=== PATIENT | female | born 1990 | race Caucasian/White ===

== ENCOUNTER 2016-12-01 22:09 | Emergency (ER) | payer OTHER ==
[~2016-12-01] VITALS: Ht 165.1 cm; Wt 87.1 kg
[~2016-12-01 22:09] MED LIST: COMP1TAB PO; MELA1TAB15 PO
[2016-12-02 00:04] LABS: MICROSCOPIC INDICATED? MAN YES (NO)
[2016-12-02 00:06] LABS: MICROSCOPIC EXAM PERFORMED
[2016-12-02 00:07] LABS: BACTERIA, URINE SMALL AMOUNT; HYALINE CAST, URINE NONE SEEN /lpf (0-1); RBC, URINE TNTC /hpf (0-3); SQUAMOUS EPITHELIAL CELL URINE SMALL AMOUNT /hpf (SMALL AMT)
[2016-12-02] MEDS ORDERED: KETOROLAC 30 MG/ML VIAL (J1885) As Ordered ONE (00:34)
[2016-12-02] MEDS ORDERED: ONDANSETRON 4MG/2ML VIAL (J2405) As Ordered ONE (00:34)
[2016-12-02 00:36] LABS: BASO % 0.4 % (0.0-1.0); EOS # 0.3 K/mm3 (0.0-0.50); EOS % 2.4 % (0.0-3.0); LARGE UNSTAINED CELL # 0.2 K/mm3 (0.0-0.4); LARGE UNSTAINED CELL % 1.4 % (0.0-4.0); LYMPH # 2.2 K/mm3 (1.5-6.5); LYMPH % 19.7 % (24.0-44.0); MEAN CORPUSCULAR HEMOGLOBIN 29.4 pg (27.0-33.0); MEAN CORPUSCULAR HGB CONC 33.4 g/dl (32.0-36.5); MONO # 0.4 K/mm3 (0.0-0.8); MONO % 3.2 % (0.0-5.0); NEUTROPHILS # 8.1 K/mm3 (1.8-7.7); NEUTROPHILS % 72.9 % (36.0-66.0); PLATELET COUNT, AUTOMATED 238 k/mm3 (150-450); RED CELL DISTRIBUTION WIDTH 12.5 % (11.5-14.5); WHITE BLOOD COUNT 11.1 K/mm3 (4.0-10.0)
[2016-12-02 00:53] LABS: CONTROL LINE HCG INT CTR LINE PRESENT
[2016-12-02 01:00] LABS: ALBUMIN 3.5 GM/DL (3.2-5.2); ALBUMIN/GLOBULIN RATIO 0.97 (1.00-1.93); ALKALINE PHOSPHATASE 103 U/L (45-117); ALT/SGPT 20 U/L (12-78); AMYLASE 29 U/L (25-115); ANION GAP 10 MEQ/L (8-16); AST/SGOT 8 U/L (15-37); BILIRUBIN,DIRECT < 0.1 MG/DL (0.0-0.2); BILIRUBIN,TOTAL 0.3 MG/DL (0.2-1.0); BLOOD UREA NITROGEN 10 MG/DL (7-18); CALCIUM LEVEL 8.4 MG/DL (8.5-10.1); CARBON DIOXIDE LEVEL 26 MEQ/L (21-32); CHLORIDE LEVEL 106 MEQ/L (98-107); GLOMERULAR FILTRATION RATE > 60.0 (>60); GLUCOSE, FASTING 108 MG/DL (70-105); POTASSIUM SERUM 3.8 MEQ/L (3.5-5.1); SODIUM LEVEL 142 MEQ/L (136-145); TOTAL PROTEIN 7.1 GM/DL (6.4-8.2)
--- NOTE | 2016-12-02 01:50 | REPUSA ---
CLINICAL HISTORY: Abdominal pain. TECHNIQUE: Multiple axial, sagittal and coronal CT images were obtained through the abdomen and pelvi s without administration of oral or IV contrast material. COMMENTS: Comparison is made to the prior exam performed on 01/25/2016. The liver is of uniform attenuation without mass or defect. There is no intra or extrahepatic biliary ductal dilatation. The spleen is normal. The gallbladder is within normal limits. The pancreas is of normal contour and attenuation characteristics. There is no evidence of adrenal mass. No change in 6 mm nonobstructing calculus in the lower calyceal group of the right kidney. Right double-J ureteric catheter was inserted in good position. Fat stranding and thickening of the distal right ureter is identified. This was not present on prior exam. The kidneys are otherwise normal in size, shape and configuration. No left renal or ureteral calculi are identified. There is no left hydroureter or hydronephrosis. There is no evidence for appendicitis. There is no bowel wall thickening. No evidence for small or la rge bowel obstruction. There is no evidence of abdominal ascites or lymphadenopathy. Thickened urinary bladder. There is no evidence of intrinsic or extrinsic bladder mass. There is no pelvic ascites or lymphadeno delores. Images of the lung bases show no evidence of pleural or parenchymal mass. There are no pleural effusi ons. The bony structures are free of lytic or blastic lesions. Spinal stimulator is seen in good position. IMPRESSION: Thickened bladder. Underdistention versus mild cystitis. Interval insertion of a right double-J catheter. No change in nonobstructing right nephrolithiasis. Thickening and fat stranding surrounding the distal aspect of the right ureter. Recent intervention v ersus an ascending urinary tract infection. Please evaluate clinically and correlate with urinalysis. Thank you for your kind referral of this patient.
[2016-12-02] MEDS ORDERED: cefTRIAXone SOD 2 GM in D5W MINI-BAG PLUS 50 ML IV SCH (03:00)
--- NOTE | 2016-12-02 04:12 | EDDOCDS ---
Nurse's Notes [facility] Name: Sandy Mirza Age: 26 yrs Sex: Female : 1990 Arrival Date: 12/01/2016 Time: 22:09 Bed 5 Private MD: Alexia Stevens N. Diagnosis: Hematuria;Calculus of kidney;Urinary tract infection, site not specified Presentation: 12/01 22:15 Presenting complaint: Patient states: Had right kidney stent placed on the of rs3 October in [facility]. increased pain today right flank to right lower abdomen. been having bloody urine, today it has been dark with clots. Acute neurological deficits are not present. Mechanism of Injury: No Mechanism of Injury. Adult Sepsis Screening: The patient does not have new or worsening altered mentation. Patient's respiratory rate is less than 22. Systolic blood pressure is greater than 100. Patient has a qSOFA score of 0- Negative Sepsis Screen. Suicide/Homicide risk assessment- the patient denies having any suicidal and/or homicidal ideations and does not present with any other emotional, behavioral or mental health complaints. Status: Patient is not a guest services or dependent. Transition of care: patient was not received from another setting of care. 22:15 Acuity: DANNI Level 3 rs3 22:15 Method Of Arrival: Walkin/Carried/Asstd rs3 Triage Assessment: 22:20 General: Appears in no apparent distress. Pain: Location: low back area and right mid rs3 back. HIV screening NA for this visit Offered previously. Musculoskeletal: Reports Pain is 8 out of 10 on a pain scale. 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 Diamox Sequels 500 mg Oral cpER 1 cap once daily 2. multivitamin Oral tab 1 tab daily 3. Ventolin HFA 90 mcg/actuation Nebulizer HFAA 2 puffs every 4-6 hours 4. oxybutynin chloride 10 mg Oral tr24 1 tab once daily 5. Flomax 0.4 mg Oral cp24 1 cap once daily 6. Pyridium 100 mg Oral tab 1 tab 3 times per day 7. oxycodone 5 mg Oral tab 1 tab every 4 hours 8. 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 No barriers to communication noted, The patient speaks fluent Divehi. - Family history: Not pertinent. - : The pt / caregiver states he / she is not on anticoagulants. Home medication list is obtained from the patient. - Exposure Risk Screening:: None identified. Screenin/13 00:47 Screening information is obtained from the patient. Fall risk: No risks identified. mgs Assistance ADL's: requires no assistance with activities of daily living. Abuse/DV Screen: The patient / caregiver reports he/she is: not in a situation that causes fear, pain or injury. Nutritional screening: No deficits noted. Advance Directives: Currently, there is no health care proxy. There is no active DNR order. home support is adequate. Assessment: 00:45 General: Appears uncomfortable, Behavior is appropriate for age, cooperative. Pain: mgs Location: right mid back and low back area Pain currently is 5 out of 10 on a pain scale. Neurological: Level of Consciousness is awake, alert, Oriented to person, place, time. Cardiovascular: Capillary refill < 3 seconds Heart tones S1 S2 present Pulses are 2+ in right radial artery and left radial artery. Respiratory: Airway is patent Respiratory effort is even, unlabored, Respiratory pattern is regular, symmetrical. GI: Abdomen is obese, Bowel sounds present X 4 quads. Abd is tender to palpation in right upper quadrant and right lower quadrant. Derm: Skin is pink, warm & dry. 01:22 General: Appears uncomfortable, Behavior is appropriate for age, cooperative. mgs Neurological: Level of Consciousness is awake, alert, Oriented to person, place, time. Cardiovascular: Capillary refill < 3 seconds. Respiratory: Airway is patent Respiratory effort is even, unlabored, Respiratory pattern is regular, symmetrical. Derm: Skin is pink, warm & dry. 02:08 General: Appears in no apparent distress, Behavior is appropriate for age, cooperative. mgs Neurological: Level of Consciousness is awake, alert, Oriented to person, place, time. Cardiovascular: Capillary refill < 3 seconds. Respiratory: Airway is patent Respiratory effort is even, unlabored, Respiratory pattern is regular, symmetrical. Derm: Skin is pink, warm & dry. 02:38 General: Appears in no apparent distress, Behavior is appropriate for age, cooperative. mgs General: Patient reports pain 0/10, reports only hurts when she urinates.. Neurological: Level of Consciousness is awake, alert, Oriented to person, place, time. Cardiovascular: Capillary refill < 3 seconds Heart tones S1 S2 present. Respiratory: Airway is patent Respiratory effort is even, unlabored, Respiratory pattern is regular, symmetrical. GI: Derm: Skin is pink, warm & dry. Vital Signs: 12/01 22:11 BP 134 / 85; Pulse 131; Resp 18; Temp 97.3(O); Pulse Ox 99% on R/A; Weight 87.09 kg ct3 (R); Height 5 ft. 5 in. (165.10 cm) (R); Pain 9/10; 12/02 00:18 BP 109 / 73 (auto/); mgs 00:22 Pulse 98 MON; Pulse Ox 96% ; mgs 00:22 BP 108 / 71; Pulse 71; Resp 18; Temp 97.8(TE); Pulse Ox 99% on R/A; mgs 02:37 BP 108 / 71 (auto/); mgs 02:38 Pulse 84 MON; Pulse Ox 98% ; mgs 03:00 Pulse 92 MON; Pulse Ox 96% ; mgs 03:30 Pulse 90 MON; Pulse Ox 97% ; mgs 04:00 Pulse 90 MON; Pulse Ox 98% ; mgs 04:06 BP 106 / 76; Pulse 85; Resp 18; Temp 97.2(O); Pulse Ox 98% on R/A; Pain 0/10; mdr 02 22:11 Body Mass Index 31.95 (87.09 kg, 165.10 cm) ct3 Vitals: 12/01 22:11 Log In Time: December 01, 2016 at 22:09. ct3 ED Course: 22:10 Patient visited by Tuyet Anton PCA. ct3 22:10 Patient moved to Waiting ct3 22:11 Alexia Stevens is Private Physician. ct3 22:12 Patient moved to Pre RCE ct3 22:18 Triage Initiated rs3 23:01 Patient moved to Waiting jmb 23:03 Patient moved to Pre RCE ct3 23:05 Patient moved to Waiting jmb 23:41 Patient visited by Inessa Santiago. nb2 23:41 Urine Culture Sent. nb2 12/02 00:01 Patient moved to 5 roselyn 00:02 Gilles Velasquez RPA-C is PHCP. ck7 00:02 Rusty Barone DO is Attending Physician. ck7 00:02 Patient visited by Gilles Velasquez RPA-C. ck7 00:05 Rusty Wilkinson,ARTIE is Primary Nurse. mgs 00:28 HCG,Serum Qualitative Sent. mgs 00:28 Amylase Sent. mgs 00:28 Basic Metabolic Profile Sent. mgs 00:28 Liver Profile Sent. mgs 00:28 Lipase Sent. mgs 00:28 CBC with Diff Sent. mgs 00:30 Inserted saline lock: 20 gauge in right antecubital area. mgs 00:48 Patient visited by Rusty Wilkinson RN. mgs 01:23 Patient visited by Rusty Wilkinson RN. mgs 01:29 [facility] Payment Agreement was scanned into [employer] and attached to record. [facility] 02:05 CT ABD & PELVIS: No Contrast Returned. EDMS 02:08 Patient visited by Gilles Velasquez RPA-C. ck7 02:09 Patient visited by Rusty Wilkinson RN. mgs 03:01 Patient visited by Rusty Wilkinson,ARTIE. mgs 04:07 Patient visited by Claudio Gregg PCA. mdr 04:10 Discontinued IV lock intact, bleeding controlled, pressure dressing applied, No mgs redness/swelling at site. No procedures done that require assistance. 04:11 The patient / caregiver is instructed regarding the plan of care and ED course. mgs Administered Medications: 00:47 Drug: NS 0.9% 1000 ml [sodium chloride 0.9 % intravenous solution] Route: IV; Rate: mgs bolus; Site: right antecubital; 00:47 Drug: ketorolac 30 mg [ketorolac 30 mg/mL (1 mL) injection solution (1 mL)] Route: IVP; mgs Site: right antecubital; 00:48 Drug: Ondansetron 4 mg [ondansetron HCl 2 mg/mL intravenous solution (2 mL)] Route: mgs IVP; Site: right antecubital; 02:35 CANCELLED (Other Intervention Used): morphine 4 mg IVP once ck7 03:01 Drug: cefTRIAXone 2 grams [ceftriaxone 1 gram solution for injection] Route: IVPB; mgs Infused Over: 30 mins; Site: right antecubital; Point of Care Testing: Urine : 12/01 23:41 hCG Reading: Negative; Control Reading: Positive; nb2 Ranges: Order Results: Lab Order: URINALYSIS MANUAL; SPEC'M 12/01/16 23:35 Test: APPEARANCE, URINE MANUAL; Value: CLOUDY; Range: CLEAR; Abnormal: Above high normal; Status: F Test: COLOR, URINE MANUAL; Value: RED; Range: YELLOW; Abnormal: Above high normal; Status: F Test: PH,URINE MAN; Value: 7.5; Range: 5.0 - 9.0; Units: UNITS; Status: F Test: SPECIFIC GRAVITY,URINE MANUAL; Value: 1.010; Range: 1.002-1.035; Status: F Test: PROTEIN, URINE MANUAL; Value: 2+; Range: NEGATIVE; Abnormal: Above high normal; Units: mg/dL; Status: F Test: GLUCOSE, URINE (UA) MANUAL; Value: NEGATIVE; Range: NEGATIVE; Units: mg/dL; Status: F Test: KETONE, URINE MANUAL; Value: NEGATIVE; Range: NEGATIVE; Units: mg/dL; Status: F Test: UROBILINOGEN, URINE MANUAL; Value: NORMAL; Range: NORMAL; Units: mg/dl; Status: F Test: BILIRUBIN, URINE MANUAL; Value: NEGATIVE; Range: NEGATIVE; Status: F Test: NITRITE, URINE MANUAL; Value: NEGATIVE; Range: NEGATIVE; Status: F Test: LEUKOCYTE ESTERASE, URINE MAN; Value: POSITIVE; Range: NEGATIVE; Abnormal: Above high normal; Status: F Test: BLOOD URINE MANUAL; Value: POSITIVE; Range: NEGATIVE; Abnormal: Above high normal; Status: F Lab Order: MICROSCOPIC, URINE; SPEC'M 12/01/16 23:35 Test: WBC, URINE; Value: 5-7; Range: 0-3; Abnormal: Above high normal; Units: /hpf; Status: F Test: RBC, URINE; Value: TNTC; Range: 0-3; Abnormal: Above high normal; Units: /hpf; Status: F Test: SQUAMOUS EPITHELIAL CELL URINE; Value: SMALL AMOUNT; Range: SMALL AMT; Units: /hpf; Status: F Test: BACTERIA, URINE; Value: SMALL AMOUNT; Range: NONE; Abnormal: Above high normal; Status: F Test: HYALINE CAST, URINE; Value: NONE SEEN; Range: 0-1; Units: /lpf; Status: F Test: MICROSCOPIC EXAM; Value: PERFORMED; Status: F Lab Order: Amylase; SPEC'12/02/16 00:27 Test: AMYLASE; Value: 29; Range: 25-115; Units: U/L; Status: F Lab Order: Basic Metabolic Profile; SPEC'12/02/16 00:27 Test: GLUCOSE, FASTING; Value: 108; Range: 70-105; Abnormal: Above high normal; Units: MG/DL; Status: F Test: BLOOD UREA NITROGEN; Value: 10; Range: 7-18; Units: MG/DL; Status: F Test: CREATININE FOR GFR; Value: 0.80; Range: 0.55-1.02; Units: MG/DL; Status: F Test: SODIUM LEVEL; Range: 136-145; Units: MEQ/L; Status: I Test: POTASSIUM SERUM; Range: 3.5-5.1; Units: MEQ/L; Status: I Test: CHLORIDE LEVEL; Range: 98-107; Units: MEQ/L; Status: I Test: CARBON DIOXIDE LEVEL; Range: 21-32; Units: MEQ/L; Status: I Test: ANION GAP; Range: 8-16; Units: MEQ/L; Status: I Test: CALCIUM LEVEL; Range: 8.5-10.1; Units: MG/DL; Status: I Test: GLOMERULAR FILTRATION RATE; Value: > 60.0; Range: >60; Status: F Test: SODIUM LEVEL; Value: 142; Range: 136-145; Units: MEQ/L; Status: F Test: POTASSIUM SERUM; Value: 3.8; Range: 3.5-5.1; Units: MEQ/L; Status: F Test: CHLORIDE LEVEL; Value: 106; Range: 98-107; Units: MEQ/L; Status: F Test: CARBON DIOXIDE LEVEL; Value: 26; Range: 21-32; Units: MEQ/L; Status: F Test: ANION GAP; Value: 10; Range: 8-16; Units: MEQ/L; Status: F Test: CALCIUM LEVEL; Value: 8.4; Range: 8.5-10.1; Abnormal: Below low normal; Units: MG/DL; Status: F Test Note: ; Units are mL/min/1.73 m2 Chronic Kidney Disease Staging per NKF: Stage I & II GFR >=60 Normal to Mildly Decreased Stage III GFR 30-59 Moderately Decreased Stage IV GFR 15-29 Severely Decreased Stage V GFR <15 Very Little GFR Left ESRD GFR <15 on [employer]PERVISOR Lab Order: CBC with Diff; SPEC'M 12/02/16 00:27 Test: WHITE BLOOD COUNT; Value: 11.1; Range: 4.0-10.0; Abnormal: Above high normal; Units: K/mm3; Status: F Test: RED BLOOD COUNT; Value: 4.32; Range: 4.00-5.40; Units: M/mm3; Status: F Test: HEMOGLOBIN; Value: 12.7; Range: 12.0-16.0; Units: g/dl; Status: F Test: HEMATOCRIT; Value: 38.0; Range: 36.0-47.0; Units: %; Status: F Test: MEAN CORPUSCULAR VOLUME; Value: 88.0; Range: 80.0-96.0; Units: fl; Status: F Test: MEAN CORPUSCULAR HEMOGLOBIN; Value: 29.4; Range: 27.0-33.0; Units: pg; Status: F Test: MEAN CORPUSCULAR HGB CONC; Value: 33.4; Range: 32.0-36.5; Units: g/dl; Status: F Test: RED CELL DISTRIBUTION WIDTH; Value: 12.5; Range: 11.5-14.5; Units: %; Status: F Test: PLATELET COUNT, AUTOMATED; Value: 238; Range: 150-450; Units: k/mm3; Status: F Test: NEUTROPHILS %; Value: 72.9; Range: 36.0-66.0; Abnormal: Above high normal; Units: %; Status: F Test: LYMPH %; Value: 19.7; Range: 24.0-44.0; Abnormal: Below low normal; Units: %; Status: F Test: MONO %; Value: 3.2; Range: 0.0-5.0; Units: %; Status: F Test: EOS %; Value: 2.4; Range: 0.0-3.0; Units: %; Status: F Test: BASO %; Value: 0.4; Range: 0.0-1.0; Units: %; Status: F Test: LARGE UNSTAINED CELL %; Value: 1.4; Range: 0.0-4.0; Units: %; Status: F Test: NEUTROPHILS #; Value: 8.1; Range: 1.8-7.7; Abnormal: Above high normal; Units: K/mm3; Status: F Test: LYMPH #; Value: 2.2; Range: 1.5-6.5; Units: K/mm3; Status: F Test: MONO #; Value: 0.4; Range: 0.0-0.8; Units: K/mm3; Status: F Test: EOS #; Value: 0.3; Range: 0.0-0.50; Units: K/mm3; Status: F Test: BASO #; Value: 0.0; Range: 0.0-0.2; Units: K/mm3; Status: F Test: LARGE UNSTAINED CELL #; Value: 0.2; Range: 0.0-0.4; Units: K/mm3; Status: F Lab Order: Lipase; SPEC'M 12/02/16 00:27 Test: LIPASE; Value: 146; Range: 73-393; Units: U/L; Status: F Lab Order: Liver Profile; SPEC'M 12/02/16 00:27 Test: AST/SGOT; Value: 8; Range: 15-37; Abnormal: Below low normal; Units: U/L; Status: F Test: ALT/SGPT; Value: 20; Range: 12-78; Units: U/L; Status: F Test: ALKALINE PHOSPHATASE; Value: 103; Range: 45-117; Units: U/L; Status: F Test: BILIRUBIN,TOTAL; Value: 0.3; Range: 0.2-1.0; Units: MG/DL; Status: F Test: BILIRUBIN,DIRECT; Value: < 0.1; Range: 0.0-0.2; Units: MG/DL; Status: F Test: TOTAL PROTEIN; Value: 7.1; Range: 6.4-8.2; Units: GM/DL; Status: F Test: ALBUMIN; Value: 3.5; Range: 3.2-5.2; Units: GM/DL; Status: F Test: ALBUMIN/GLOBULIN RATIO; Value: 0.97; Range: 1.00-1.93; Abnormal: Below low normal; Status: F Lab Order: HCG,Serum Qualitative; SPEC'M 12/02/16 00:27 Test: HCG, SERUM QUALITATIVE; Value: NEGATIVE; Range: NEGATIVE; Status: F Radiology Order: CT ABD & PELVIS: No Contrast Test: CT ABD & PELVIS: No Contrast REASON FOR EXAMINATION: Renal colic; ; CLINICAL HISTORY: Abdominal pain.; TECHNIQUE: Multiple axial, sagittal and coronal CT images were obtained through the abdomen and pelvi; s without administration of oral or IV contrast material.; COMMENTS:; Comparison is made to the prior exam performed on 01/25/2016.; The liver is of uniform attenuation without mass or defect. There is no intra or extrahepatic biliary; ductal dilatation. The spleen is normal. The gallbladder is within normal limits. The pancreas is of; normal contour and attenuation characteristics. There is no evidence of adrenal mass.; No change in 6 mm nonobstructing calculus in the lower calyceal group of the right kidney.; Right double-J ureteric catheter was inserted in good position.; Fat stranding and thickening of the distal right ureter is identified. This was not present on prior; exam.; The kidneys are otherwise normal in size, shape and configuration. No left renal or ureteral calculi; are identified. There is no left hydroureter or hydronephrosis.; There is no evidence for appendicitis. There is no bowel wall thickening. No evidence for small or la; rge bowel obstruction. There is no evidence of abdominal ascites or lymphadenopathy.; Thickened urinary bladder.; There is no evidence of intrinsic or extrinsic bladder mass. There is no pelvic ascites or lymphadeno; delores.; Images of the lung bases show no evidence of pleural or parenchymal mass. There are no pleural effusi; ons.; The bony structures are free of lytic or blastic lesions.; Spinal stimulator is seen in good position.; IMPRESSION:; Thickened bladder. Underdistention versus mild cystitis.; Interval insertion of a right double-J catheter.; No change in nonobstructing right nephrolithiasis.; Thickening and fat stranding surrounding the distal aspect of the right ureter. Recent intervention v; ersus an ascending urinary tract infection. Please evaluate clinically and correlate with urinalysis.; ; Thank you for your kind referral of this patient.; ; Outcome: 12/02 02:37 Discharge ordered by Provider. ck7 04:10 Discharge Assessment: Patient awake, alert and oriented x 3. No cognitive and/or mgs functional deficits noted. Patient verbalized understanding of disposition instructions. patient administered narcotics - no. The following High Risk Discharge criteria are identified: None. Discharged to home ambulatory, with family. Condition: stable. Discharge instructions given to patient, Instructed on discharge instructions, follow up and referral plans. Demonstrated understanding of instructions, Pt was receptive of discharge instructions/ teaching. Work note provided to patient. CT Study completed. Property :Personal belongings accompany Pt. 04:11 Patient left the ED. mgs Signatures: Dispatcher [employer] EDMS Janie Jiménez,RN RN rs3 Jeanette Schmitt, HAND MARKER HAND MARKER roselyn AntonTuyet, HAND MARKER HAND MARKER ct3 Gilles Velasquez, RPA-C RPA-Cck7 Amos BensonRN RN Cait Stanford Matthew,RN RN mgs Claudio Gregg, HAND MARKER HAND MARKER mdr Inessa Santiago nb2 Corrections: (The following items were deleted from the chart) 12/01 23:46 23:41 URINALYSIS+LAB sent. nb2 EDNH MTDD
--- NOTE | 2016-12-02 04:12 | EDDOCDS ---
Physician Documentation [facility] Name: Sandy Mirza Age: 26 yrs Sex: Female : 1990 Arrival Date: 12/01/2016 Time: 22:09 Bed 5 Private MD: Alexia Stevens N. Disposition: 12/02/16 02:37 Discharged to Home/Self Care. Impression: Hematuria, Calculus of kidney, Urinary tract infection, site not specified. - Condition is Stable. - Discharge Instructions: Hematuria, Adult, Kidney Stones, Urinary Tract Infection. - Medication Reconciliation, Work Release Form - 2 day, Local Pharmacy Hours form. - Follow up: Private Physician; When: Tomorrow; Reason: Recheck today's complaints, Continuance of care. Follow up: Emergency Department; When: As needed; Reason: Recheck today's complaints, Worsening of conditions, Continuance of care. - Problem is new. - Symptoms have improved. - Notes: CALL [facility] TOMORROW MORNING TO FOLLOW UP TOMORROW, IF BY CHANCE THE SYMPTOMS WORSEN OR THEY ARE UNABLE TO GET YOU IN RETURN TO THE ER Historical: - Allergies: Adhesives (Rash); Ciprofloxacin (Vomit); Dilaudid (Hives, Vomit); Doxycycline (Hives, Vomit); latex sensitive; SULFA (SULFONAMIDES) (Vomit); - Home Meds: 1. Diamox Sequels 500 mg Oral cpER 1 cap once daily 2. multivitamin Oral tab 1 tab daily 3. Ventolin HFA 90 mcg/actuation Nebulizer HFAA 2 puffs every 4-6 hours 4. oxybutynin chloride 10 mg Oral tr24 1 tab once daily 5. Flomax 0.4 mg Oral cp24 1 cap once daily 6. Pyridium 100 mg Oral tab 1 tab 3 times per day 7. oxycodone 5 mg Oral tab 1 tab every 4 hours 8. 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 No barriers to communication noted, The patient speaks fluent Luxembourgish. - Family history: Not pertinent. - : The pt / caregiver states he / she is not on anticoagulants. Home medication list is obtained from the patient. - Exposure Risk Screening:: None identified. 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 5 in. (165.10 cm) (R); Pain 9/10; 12/02 00:18 BP 109 / 73 (auto/); mgs 00:22 Pulse 98 MON; Pulse Ox 96% ; mgs 00:22 BP 108 / 71; Pulse 71; Resp 18; Temp 97.8(TE); Pulse Ox 99% on R/A; mgs 02:37 BP 108 / 71 (auto/); mgs 02:38 Pulse 84 MON; Pulse Ox 98% ; mgs 03:00 Pulse 92 MON; Pulse Ox 96% ; mgs 03:30 Pulse 90 MON; Pulse Ox 97% ; mgs 04:00 Pulse 90 MON; Pulse Ox 98% ; mgs 04:06 BP 106 / 76; Pulse 85; Resp 18; Temp 97.2(O); Pulse Ox 98% on R/A; Pain 0/10; mdr 12/01 22:11 Body Mass Index 31.95 (87.09 kg, 165.10 cm) ct3 MDM: 12/01 23:33 UCG by Nursing ordered. jmb 23:34 Urine Culture Ordered. EDMS 23:46 URINALYSIS MANUAL Ordered. EDMS 12/02 00:05 URINALYSIS MANUAL Reviewed. ck7 00:13 Undress patient appropriately for examination ordered. ck7 00:13 IV Saline Lock ordered. ck7 00:13 Ondansetron 4 mg IVP once ordered. ck7 00:13 NS 0.9% 1000 ml IV at bolus once ordered. ck7 00:14 Amylase Ordered. EDMS 00:14 Basic Metabolic Profile Ordered. EDMS 00:14 CBC with Diff Ordered. EDMS 00:14 Lipase Ordered. EDMS 00:14 Liver Profile Ordered. EDMS 00:14 HCG,Serum Qualitative Ordered. EDMS 00:15 NOTHING BY MOUTH+DIET ordered. EDMS 00:16 ketorolac 30 mg IVP once ordered. ck7 00:18 CT ABD & PELVIS: No Contrast Ordered. EDMS 01:05 URINALYSIS MANUAL Reviewed. ck7 01:05 MICROSCOPIC, URINE Reviewed. ck7 01:05 Basic Metabolic Profile Reviewed. ck7 01: CBC with Diff Reviewed. ck7 01:05 Liver Profile Reviewed. ck7 01:05 Amylase Reviewed. ck7 01:05 Lipase Reviewed. ck7 01:05 HCG,Serum Qualitative Reviewed. ck7 01:05 Financial registration complete. [facility] 01:29 [facility] Payment Agreement was scanned into [employer] and attached to record. [facility] 02:35 cefTRIAXone 2 grams IVPB once over 30 mins; dilute in 50mL of NS or D5W ordered. ck7 02:35 Recheck Vital Signs, perform reassessment and enter into [employer] ordered. ck7 Point of Care Testing: Urine : 12/01 23:41 hCG Reading: Negative; Control Reading: Positive; nb2 Ranges: Administered Medications: 12/02 00:47 Drug: NS 0.9% 1000 ml [sodium chloride 0.9 % intravenous solution] Route: IV; Rate: mgs bolus; Site: right antecubital; 00:47 Drug: ketorolac 30 mg [ketorolac 30 mg/mL (1 mL) injection solution (1 mL)] Route: IVP; mgs Site: right antecubital; 00:48 Drug: Ondansetron 4 mg [ondansetron HCl 2 mg/mL intravenous solution (2 mL)] Route: mgs IVP; Site: right antecubital; 02:35 CANCELLED (Other Intervention Used): morphine 4 mg IVP once ck7 03:01 Drug: cefTRIAXone 2 grams [ceftriaxone 1 gram solution for injection] Route: IVPB; mgs Infused Over: 30 mins; Site: right antecubital; Signatures: Dispatcher [employer] EDPA Janie Jiménez RN RN rs3 Gilles Velasquez, CARLOS-C RPA-Cck7 Amos Benson RN RN jmb Hook, Sandra [facility] Rusty Wilkinson RN RN mgs The chart was reviewed and I authenticate all verbal orders and agree with the evaluation and treatment provided.Corrections: (The following items were deleted from the chart) 12/01 23:46 23:34 URINALYSIS+LAB ordered. EDPA EDPA 12/02 02:35 00:16 morphine 4 mg IVP once ordered. ck7 ck7 Attachments: 01:29 [facility] Payment Agreement [facility]
--- NOTE | 2016-12-04 05:12 | EDDOCDS ---
Nurse's Notes [facility] Name: Sandy Mirza Age: 26 yrs Sex: Female : 1990 Arrival Date: 12/01/2016 Time: 22:09 Bed 5 Private MD: Alxeia Stevens N. Diagnosis: Hematuria;Calculus of kidney;Urinary tract infection, site not specified Presentation: 12/01 22:15 Presenting complaint: Patient states: Had right kidney stent placed on the of rs3 October in [facility]. increased pain today right flank to right lower abdomen. been having bloody urine, today it has been dark with clots. Acute neurological deficits are not present. Mechanism of Injury: No Mechanism of Injury. Adult Sepsis Screening: The patient does not have new or worsening altered mentation. Patient's respiratory rate is less than 22. Systolic blood pressure is greater than 100. Patient has a qSOFA score of 0- Negative Sepsis Screen. Suicide/Homicide risk assessment- the patient denies having any suicidal and/or homicidal ideations and does not present with any other emotional, behavioral or mental health complaints. Status: Patient is not a atm servicer or dependent. Transition of care: patient was not received from another setting of care. 22:15 Acuity: DANNI Level 3 rs3 22:15 Method Of Arrival: Walkin/Carried/Asstd rs3 Triage Assessment: 22:20 General: Appears in no apparent distress. Pain: Location: low back area and right mid rs3 back. HIV screening NA for this visit Offered previously. Musculoskeletal: Reports Pain is 8 out of 10 on a pain scale. 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 Diamox Sequels 500 mg Oral cpER 1 cap once daily 2. multivitamin Oral tab 1 tab daily 3. Ventolin HFA 90 mcg/actuation Nebulizer HFAA 2 puffs every 4-6 hours 4. oxybutynin chloride 10 mg Oral tr24 1 tab once daily 5. Flomax 0.4 mg Oral cp24 1 cap once daily 6. Pyridium 100 mg Oral tab 1 tab 3 times per day 7. oxycodone 5 mg Oral tab 1 tab every 4 hours 8. 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 No barriers to communication noted, The patient speaks fluent Estonian. - Family history: Not pertinent. - : The pt / caregiver states he / she is not on anticoagulants. Home medication list is obtained from the patient. - Exposure Risk Screening:: None identified. Screenin/13 00:47 Screening information is obtained from the patient. Fall risk: No risks identified. mgs Assistance ADL's: requires no assistance with activities of daily living. Abuse/DV Screen: The patient / caregiver reports he/she is: not in a situation that causes fear, pain or injury. Nutritional screening: No deficits noted. Advance Directives: Currently, there is no health care proxy. There is no active DNR order. home support is adequate. Assessment: 00:45 General: Appears uncomfortable, Behavior is appropriate for age, cooperative. Pain: mgs Location: right mid back and low back area Pain currently is 5 out of 10 on a pain scale. Neurological: Level of Consciousness is awake, alert, Oriented to person, place, time. Cardiovascular: Capillary refill < 3 seconds Heart tones S1 S2 present Pulses are 2+ in right radial artery and left radial artery. Respiratory: Airway is patent Respiratory effort is even, unlabored, Respiratory pattern is regular, symmetrical. GI: Abdomen is obese, Bowel sounds present X 4 quads. Abd is tender to palpation in right upper quadrant and right lower quadrant. Derm: Skin is pink, warm & dry. 01:22 General: Appears uncomfortable, Behavior is appropriate for age, cooperative. mgs Neurological: Level of Consciousness is awake, alert, Oriented to person, place, time. Cardiovascular: Capillary refill < 3 seconds. Respiratory: Airway is patent Respiratory effort is even, unlabored, Respiratory pattern is regular, symmetrical. Derm: Skin is pink, warm & dry. 02:08 General: Appears in no apparent distress, Behavior is appropriate for age, cooperative. mgs Neurological: Level of Consciousness is awake, alert, Oriented to person, place, time. Cardiovascular: Capillary refill < 3 seconds. Respiratory: Airway is patent Respiratory effort is even, unlabored, Respiratory pattern is regular, symmetrical. Derm: Skin is pink, warm & dry. 02:38 General: Appears in no apparent distress, Behavior is appropriate for age, cooperative. mgs General: Patient reports pain 0/10, reports only hurts when she urinates.. Neurological: Level of Consciousness is awake, alert, Oriented to person, place, time. Cardiovascular: Capillary refill < 3 seconds Heart tones S1 S2 present. Respiratory: Airway is patent Respiratory effort is even, unlabored, Respiratory pattern is regular, symmetrical. GI: Derm: Skin is pink, warm & dry. Vital Signs: 12/01 22:11 BP 134 / 85; Pulse 131; Resp 18; Temp 97.3(O); Pulse Ox 99% on R/A; Weight 87.09 kg ct3 (R); Height 5 ft. 5 in. (165.10 cm) (R); Pain 9/10; 12/02 00:18 BP 109 / 73 (auto/); mgs 00:22 Pulse 98 MON; Pulse Ox 96% ; mgs 00:22 BP 108 / 71; Pulse 71; Resp 18; Temp 97.8(TE); Pulse Ox 99% on R/A; mgs 02:37 BP 108 / 71 (auto/); mgs 02:38 Pulse 84 MON; Pulse Ox 98% ; mgs 03:00 Pulse 92 MON; Pulse Ox 96% ; mgs 03:30 Pulse 90 MON; Pulse Ox 97% ; mgs 04:00 Pulse 90 MON; Pulse Ox 98% ; mgs 04:06 BP 106 / 76; Pulse 85; Resp 18; Temp 97.2(O); Pulse Ox 98% on R/A; Pain 0/10; mdr 02 22:11 Body Mass Index 31.95 (87.09 kg, 165.10 cm) ct3 Vitals: 12/01 22:11 Log In Time: December 01, 2016 at 22:09. ct3 ED Course: 22:10 Patient visited by Tuyet Anton PCA. ct3 22:10 Patient moved to Waiting ct3 22:11 Alexia Stevens is Private Physician. ct3 22:12 Patient moved to Pre RCE ct3 22:18 Triage Initiated rs3 23:01 Patient moved to Waiting jmb 23:03 Patient moved to Pre RCE ct3 23:05 Patient moved to Waiting jmb 23:41 Patient visited by Inessa Santiago. nb2 23:41 Urine Culture Sent. nb2 12/02 00:01 Patient moved to 5 roselyn 00:02 Gilles Velasquez RPA-C is PHCP. ck7 00:02 Rusty Barone DO is Attending Physician. ck7 00:02 Patient visited by Gilles Velasquez RPA-C. ck7 00:05 Rusty Wilkinson,ARTIE is Primary Nurse. mgs 00:28 HCG,Serum Qualitative Sent. mgs 00:28 Amylase Sent. mgs 00:28 Basic Metabolic Profile Sent. mgs 00:28 Liver Profile Sent. mgs 00:28 Lipase Sent. mgs 00:28 CBC with Diff Sent. mgs 00:30 Inserted saline lock: 20 gauge in right antecubital area. mgs 00:48 Patient visited by Rusty Wilkinson RN. mgs 01:23 Patient visited by Rusty Wilkinson RN. mgs 01:29 [facility] Payment Agreement was scanned into [employer] and attached to record. [facility] 02:05 CT ABD & PELVIS: No Contrast Returned. EDMS 02:08 Patient visited by Gilles Velasquez RPA-C. ck7 02:09 Patient visited by Rusty Wilkinson,ARTIE. mgs 03:01 Patient visited by Rusty Wilkinson,ARTIE. mgs 04:07 Patient visited by Claudio Gregg PCA. mdr 04:10 Discontinued IV lock intact, bleeding controlled, pressure dressing applied, No mgs redness/swelling at site. No procedures done that require assistance. 04:11 The patient / caregiver is instructed regarding the plan of care and ED course. mgs 12:08 T-Sheet-- Draft Copy was scanned into [employer] and attached to record. gb Administered Medications: 00:47 Drug: NS 0.9% 1000 ml [sodium chloride 0.9 % intravenous solution] Route: IV; Rate: mgs bolus; Site: right antecubital; 00:47 Drug: ketorolac 30 mg [ketorolac 30 mg/mL (1 mL) injection solution (1 mL)] Route: IVP; mgs Site: right antecubital; 00:48 Drug: Ondansetron 4 mg [ondansetron HCl 2 mg/mL intravenous solution (2 mL)] Route: mgs IVP; Site: right antecubital; 02:35 CANCELLED (Other Intervention Used): morphine 4 mg IVP once ck7 03:01 Drug: cefTRIAXone 2 grams [ceftriaxone 1 gram solution for injection] Route: IVPB; mgs Infused Over: 30 mins; Site: right antecubital; Point of Care Testing: Urine : 12/01 23:41 hCG Reading: Negative; Control Reading: Positive; nb2 Ranges: Order Results: Lab Order: Urine Culture; SPEC'M 12/01/16 23:35 Test: URINE CULTURE; Value: <EXTERNAL COMMENT eCWMed> FULL REPORT IN LAB NOTES (eCW and Medent).; Status: F Test: URINE CULTURE; Value: URINE CULTURE RESULT NO GROWTH; Status: F Lab Order: URINALYSIS MANUAL; SPEC'M 12/01/16 23:35 Test: APPEARANCE, URINE MANUAL; Value: CLOUDY; Range: CLEAR; Abnormal: Above high normal; Status: F Test: COLOR, URINE MANUAL; Value: RED; Range: YELLOW; Abnormal: Above high normal; Status: F Test: PH,URINE MAN; Value: 7.5; Range: 5.0 - 9.0; Units: UNITS; Status: F Test: SPECIFIC GRAVITY,URINE MANUAL; Value: 1.010; Range: 1.002-1.035; Status: F Test: PROTEIN, URINE MANUAL; Value: 2+; Range: NEGATIVE; Abnormal: Above high normal; Units: mg/dL; Status: F Test: GLUCOSE, URINE (UA) MANUAL; Value: NEGATIVE; Range: NEGATIVE; Units: mg/dL; Status: F Test: KETONE, URINE MANUAL; Value: NEGATIVE; Range: NEGATIVE; Units: mg/dL; Status: F Test: UROBILINOGEN, URINE MANUAL; Value: NORMAL; Range: NORMAL; Units: mg/dl; Status: F Test: BILIRUBIN, URINE MANUAL; Value: NEGATIVE; Range: NEGATIVE; Status: F Test: NITRITE, URINE MANUAL; Value: NEGATIVE; Range: NEGATIVE; Status: F Test: LEUKOCYTE ESTERASE, URINE MAN; Value: POSITIVE; Range: NEGATIVE; Abnormal: Above high normal; Status: F Test: BLOOD URINE MANUAL; Value: POSITIVE; Range: NEGATIVE; Abnormal: Above high normal; Status: F Lab Order: MICROSCOPIC, URINE; [facility] 12/01/16 23:35 Test: WBC, URINE; Value: 5-7; Range: 0-3; Abnormal: Above high normal; Units: /hpf; Status: F Test: RBC, URINE; Value: TNTC; Range: 0-3; Abnormal: Above high normal; Units: /hpf; Status: F Test: SQUAMOUS EPITHELIAL CELL URINE; Value: SMALL AMOUNT; Range: SMALL AMT; Units: /hpf; Status: F Test: BACTERIA, URINE; Value: SMALL AMOUNT; Range: NONE; Abnormal: Above high normal; Status: F Test: HYALINE CAST, URINE; Value: NONE SEEN; Range: 0-1; Units: /lpf; Status: F Test: MICROSCOPIC EXAM; Value: PERFORMED; Status: F Lab Order: Amylase; [facility] 12/02/16 00:27 Test: AMYLASE; Value: 29; Range: 25-115; Units: U/L; Status: F Lab Order: Basic Metabolic Profile; [facility] 12/02/16 00:27 Test: GLUCOSE, FASTING; Value: 108; Range: 70-105; Abnormal: Above high normal; Units: MG/DL; Status: F Test: BLOOD UREA NITROGEN; Value: 10; Range: 7-18; Units: MG/DL; Status: F Test: CREATININE FOR GFR; Value: 0.80; Range: 0.55-1.02; Units: MG/DL; Status: F Test: SODIUM LEVEL; Range: 136-145; Units: MEQ/L; Status: I Test: POTASSIUM SERUM; Range: 3.5-5.1; Units: MEQ/L; Status: I Test: CHLORIDE LEVEL; Range: 98-107; Units: MEQ/L; Status: I Test: CARBON DIOXIDE LEVEL; Range: 21-32; Units: MEQ/L; Status: I Test: ANION GAP; Range: 8-16; Units: MEQ/L; Status: I Test: CALCIUM LEVEL; Range: 8.5-10.1; Units: MG/DL; Status: I Test: GLOMERULAR FILTRATION RATE; Value: > 60.0; Range: >60; Status: F Test: SODIUM LEVEL; Value: 142; Range: 136-145; Units: MEQ/L; Status: F Test: POTASSIUM SERUM; Value: 3.8; Range: 3.5-5.1; Units: MEQ/L; Status: F Test: CHLORIDE LEVEL; Value: 106; Range: 98-107; Units: MEQ/L; Status: F Test: CARBON DIOXIDE LEVEL; Value: 26; Range: 21-32; Units: MEQ/L; Status: F Test: ANION GAP; Value: 10; Range: 8-16; Units: MEQ/L; Status: F Test: CALCIUM LEVEL; Value: 8.4; Range: 8.5-10.1; Abnormal: Below low normal; Units: MG/DL; Status: F Test Note: ; Units are mL/min/1.73 m2 Chronic Kidney Disease Staging per NKF: Stage I & II GFR >=60 Normal to Mildly Decreased Stage III GFR 30-59 Moderately Decreased Stage IV GFR 15-29 Severely Decreased Stage V GFR <15 Very Little GFR Left ESRD GFR <15 on QUANTITATIVE RESEARCHER Lab Order: CBC with Diff; SPEC'M 12/02/16 00:27 Test: WHITE BLOOD COUNT; Value: 11.1; Range: 4.0-10.0; Abnormal: Above high normal; Units: K/mm3; Status: F Test: RED BLOOD COUNT; Value: 4.32; Range: 4.00-5.40; Units: M/mm3; Status: F Test: HEMOGLOBIN; Value: 12.7; Range: 12.0-16.0; Units: g/dl; Status: F Test: HEMATOCRIT; Value: 38.0; Range: 36.0-47.0; Units: %; Status: F Test: MEAN CORPUSCULAR VOLUME; Value: 88.0; Range: 80.0-96.0; Units: fl; Status: F Test: MEAN CORPUSCULAR HEMOGLOBIN; Value: 29.4; Range: 27.0-33.0; Units: pg; Status: F Test: MEAN CORPUSCULAR HGB CONC; Value: 33.4; Range: 32.0-36.5; Units: g/dl; Status: F Test: RED CELL DISTRIBUTION WIDTH; Value: 12.5; Range: 11.5-14.5; Units: %; Status: F Test: PLATELET COUNT, AUTOMATED; Value: 238; Range: 150-450; Units: k/mm3; Status: F Test: NEUTROPHILS %; Value: 72.9; Range: 36.0-66.0; Abnormal: Above high normal; Units: %; Status: F Test: LYMPH %; Value: 19.7; Range: 24.0-44.0; Abnormal: Below low normal; Units: %; Status: F Test: MONO %; Value: 3.2; Range: 0.0-5.0; Units: %; Status: F Test: EOS %; Value: 2.4; Range: 0.0-3.0; Units: %; Status: F Test: BASO %; Value: 0.4; Range: 0.0-1.0; Units: %; Status: F Test: LARGE UNSTAINED CELL %; Value: 1.4; Range: 0.0-4.0; Units: %; Status: F Test: NEUTROPHILS #; Value: 8.1; Range: 1.8-7.7; Abnormal: Above high normal; Units: K/mm3; Status: F Test: LYMPH #; Value: 2.2; Range: 1.5-6.5; Units: K/mm3; Status: F Test: MONO #; Value: 0.4; Range: 0.0-0.8; Units: K/mm3; Status: F Test: EOS #; Value: 0.3; Range: 0.0-0.50; Units: K/mm3; Status: F Test: BASO #; Value: 0.0; Range: 0.0-0.2; Units: K/mm3; Status: F Test: LARGE UNSTAINED CELL #; Value: 0.2; Range: 0.0-0.4; Units: K/mm3; Status: F Lab Order: Lipase; SPEC'M 12/02/16 00:27 Test: LIPASE; Value: 146; Range: 73-393; Units: U/L; Status: F Lab Order: Liver Profile; SPEC'M 12/02/16 00:27 Test: AST/SGOT; Value: 8; Range: 15-37; Abnormal: Below low normal; Units: U/L; Status: F Test: ALT/SGPT; Value: 20; Range: 12-78; Units: U/L; Status: F Test: ALKALINE PHOSPHATASE; Value: 103; Range: 45-117; Units: U/L; Status: F Test: BILIRUBIN,TOTAL; Value: 0.3; Range: 0.2-1.0; Units: MG/DL; Status: F Test: BILIRUBIN,DIRECT; Value: < 0.1; Range: 0.0-0.2; Units: MG/DL; Status: F Test: TOTAL PROTEIN; Value: 7.1; Range: 6.4-8.2; Units: GM/DL; Status: F Test: ALBUMIN; Value: 3.5; Range: 3.2-5.2; Units: GM/DL; Status: F Test: ALBUMIN/GLOBULIN RATIO; Value: 0.97; Range: 1.00-1.93; Abnormal: Below low normal; Status: F Lab Order: HCG,Serum Qualitative; SPEC'M 12/02/16 00:27 Test: HCG, SERUM QUALITATIVE; Value: NEGATIVE; Range: NEGATIVE; Status: F Radiology Order: CT ABD & PELVIS: No Contrast Test: CT ABD & PELVIS: No Contrast REASON FOR EXAMINATION: Renal colic; ; CLINICAL HISTORY: Abdominal pain.; TECHNIQUE: Multiple axial, sagittal and coronal CT images were obtained through the abdomen and pelvi; s without administration of oral or IV contrast material.; COMMENTS:; Comparison is made to the prior exam performed on 01/25/2016.; The liver is of uniform attenuation without mass or defect. There is no intra or extrahepatic biliary; ductal dilatation. The spleen is normal. The gallbladder is within normal limits. The pancreas is of; normal contour and attenuation characteristics. There is no evidence of adrenal mass.; No change in 6 mm nonobstructing calculus in the lower calyceal group of the right kidney.; Right double-J ureteric catheter was inserted in good position.; Fat stranding and thickening of the distal right ureter is identified. This was not present on prior; exam.; The kidneys are otherwise normal in size, shape and configuration. No left renal or ureteral calculi; are identified. There is no left hydroureter or hydronephrosis.; There is no evidence for appendicitis. There is no bowel wall thickening. No evidence for small or la; rge bowel obstruction. There is no evidence of abdominal ascites or lymphadenopathy.; Thickened urinary bladder.; There is no evidence of intrinsic or extrinsic bladder mass. There is no pelvic ascites or lymphadeno; delores.; Images of the lung bases show no evidence of pleural or parenchymal mass. There are no pleural effusi; ons.; The bony structures are free of lytic or blastic lesions.; Spinal stimulator is seen in good position.; IMPRESSION:; Thickened bladder. Underdistention versus mild cystitis.; Interval insertion of a right double-J catheter.; No change in nonobstructing right nephrolithiasis.; Thickening and fat stranding surrounding the distal aspect of the right ureter. Recent intervention v; ersus an ascending urinary tract infection. Please evaluate clinically and correlate with urinalysis.; ; Thank you for your kind referral of this patient.; ; Outcome: 12/02 02:37 Discharge ordered by Provider. ck7 04:10 Discharge Assessment: Patient awake, alert and oriented x 3. No cognitive and/or mgs functional deficits noted. Patient verbalized understanding of disposition instructions. patient administered narcotics - no. The following High Risk Discharge criteria are identified: None. Discharged to home ambulatory, with family. Condition: stable. Discharge instructions given to patient, Instructed on discharge instructions, follow up and referral plans. Demonstrated understanding of instructions, Pt was receptive of discharge instructions/ teaching. Work note provided to patient. CT Study completed. Property :Personal belongings accompany Pt. 04:11 Patient left the ED. mgs Signatures: Dispatcher [employer] EDMS Nilam Coleman, Reg Reg Janie Rubio RN RN rs3 Jeanette Schmitt, PEANUT SHAKER PEANUT SHAKER roselyn Tuyet Anton, PEANUT SHAKER PEANUT SHAKER ct3 Gilles Velasquez, RPA-C RPA-Cck7 Amos Benson, PSA PSA Cait Stanford Matthew, RN RN mgs Claudio Gregg, PEANUT SHAKER PEANUT SHAKER Inessa Sarah nb2 Corrections: (The following items were deleted from the chart) 12/01 23:46 23:41 URINALYSIS+LAB sent. 2 EDME Chart Complete MTDD
--- NOTE | 2016-12-04 05:12 | EDDOCDS ---
Physician Documentation [facility] Name: Sandy Mirza Age: 26 yrs Sex: Female : 1990 Arrival Date: 12/01/2016 Time: 22:09 Bed 5 Private MD: Alexia Stevens N. Disposition: 12/02/16 02:37 Discharged to Home/Self Care. Impression: Hematuria, Calculus of kidney, Urinary tract infection, site not specified. - Condition is Stable. - Discharge Instructions: Hematuria, Adult, Kidney Stones, Urinary Tract Infection. - Medication Reconciliation, Work Release Form - 2 day, Local Pharmacy Hours form. - Follow up: Private Physician; When: Tomorrow; Reason: Recheck today's complaints, Continuance of care. Follow up: Emergency Department; When: As needed; Reason: Recheck today's complaints, Worsening of conditions, Continuance of care. - Problem is new. - Symptoms have improved. - Notes: CALL [facility] TOMORROW MORNING TO FOLLOW UP TOMORROW, IF BY CHANCE THE SYMPTOMS WORSEN OR THEY ARE UNABLE TO GET YOU IN RETURN TO THE ER Historical: - Allergies: Adhesives (Rash); Ciprofloxacin (Vomit); Dilaudid (Hives, Vomit); Doxycycline (Hives, Vomit); latex sensitive; SULFA (SULFONAMIDES) (Vomit); - Home Meds: 1. Diamox Sequels 500 mg Oral cpER 1 cap once daily 2. multivitamin Oral tab 1 tab daily 3. Ventolin HFA 90 mcg/actuation Nebulizer HFAA 2 puffs every 4-6 hours 4. oxybutynin chloride 10 mg Oral tr24 1 tab once daily 5. Flomax 0.4 mg Oral cp24 1 cap once daily 6. Pyridium 100 mg Oral tab 1 tab 3 times per day 7. oxycodone 5 mg Oral tab 1 tab every 4 hours 8. 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 No barriers to communication noted, The patient speaks fluent Romansh. - Family history: Not pertinent. - : The pt / caregiver states he / she is not on anticoagulants. Home medication list is obtained from the patient. - Exposure Risk Screening:: None identified. 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 5 in. (165.10 cm) (R); Pain 9/10; 12/02 00:18 BP 109 / 73 (auto/); mgs 00:22 Pulse 98 MON; Pulse Ox 96% ; mgs 00:22 BP 108 / 71; Pulse 71; Resp 18; Temp 97.8(TE); Pulse Ox 99% on R/A; mgs 02:37 BP 108 / 71 (auto/); mgs 02:38 Pulse 84 MON; Pulse Ox 98% ; mgs 03:00 Pulse 92 MON; Pulse Ox 96% ; mgs 03:30 Pulse 90 MON; Pulse Ox 97% ; mgs 04:00 Pulse 90 MON; Pulse Ox 98% ; mgs 04:06 BP 106 / 76; Pulse 85; Resp 18; Temp 97.2(O); Pulse Ox 98% on R/A; Pain 0/10; mdr 12/01 22:11 Body Mass Index 31.95 (87.09 kg, 165.10 cm) ct3 MDM: 12/01 23:33 UCG by Nursing ordered. jmb 23:34 Urine Culture Ordered. EDMS 23:46 URINALYSIS MANUAL Ordered. EDMS 12/02 00:05 URINALYSIS MANUAL Reviewed. ck7 00:13 Undress patient appropriately for examination ordered. ck7 00:13 IV Saline Lock ordered. ck7 00:13 Ondansetron 4 mg IVP once ordered. ck7 00:13 NS 0.9% 1000 ml IV at bolus once ordered. ck7 00:14 Amylase Ordered. EDMS 00:14 Basic Metabolic Profile Ordered. EDMS 00:14 CBC with Diff Ordered. EDMS 00:14 Lipase Ordered. EDMS 00:14 Liver Profile Ordered. EDMS 00:14 HCG,Serum Qualitative Ordered. EDMS 00:15 NOTHING BY MOUTH+DIET ordered. EDMS 00:16 ketorolac 30 mg IVP once ordered. ck7 00:18 CT ABD & PELVIS: No Contrast Ordered. EDMS 01:05 URINALYSIS MANUAL Reviewed. ck7 01:05 MICROSCOPIC, URINE Reviewed. ck7 : Basic Metabolic Profile Reviewed. ck7 : CBC with Diff Reviewed. ck7 : Liver Profile Reviewed. ck7 01: Amylase Reviewed. ck7 01:05 Lipase Reviewed. ck7 01:05 HCG,Serum Qualitative Reviewed. ck7 :[address] [facility] 01:29 [facility] Payment Agreement was scanned into [employer] and attached to record. [facility] 02:35 cefTRIAXone 2 grams IVPB once over 30 mins; dilute in 50mL of NS or D5W ordered. ck7 02:35 Recheck Vital Signs, perform reassessment and enter into [employer] Heart Valve ordered. ck7 12:08 T-Sheet-- Draft Copy was scanned into [employer] and attached to record. Point of Care Testing: Urine : 12/01 23:41 hCG Reading: Negative; Control Reading: Positive; nb2 Ranges: Administered Medications: 12/02 00:47 Drug: NS 0.9% 1000 ml [sodium chloride 0.9 % intravenous solution] Route: IV; Rate: mgs bolus; Site: right antecubital; 00:47 Drug: ketorolac 30 mg [ketorolac 30 mg/mL (1 mL) injection solution (1 mL)] Route: IVP; mgs Site: right antecubital; 00:48 Drug: Ondansetron 4 mg [ondansetron HCl 2 mg/mL intravenous solution (2 mL)] Route: mgs IVP; Site: right antecubital; 02:35 CANCELLED (Other Intervention Used): morphine 4 mg IVP once ck7 03:01 Drug: cefTRIAXone 2 grams [ceftriaxone 1 gram solution for injection] Route: IVPB; mgs Infused Over: 30 mins; Site: right antecubital; Signatures: Dispatcher MedHo EDMS Nilam Coleman, Reg Reg Janie RubioRN RN rs3 Gilles Velasquez, RPA-C RPA-Cck7 Amos Benson, PSA PSA Cait Stanford [facility] Rusty Wilkinson,RN RN mgs The chart was reviewed and I authenticate all verbal orders and agree with the evaluation and treatment provided.Corrections: (The following items were deleted from the chart) 12/01 23:46 23:34 URINALYSIS+LAB ordered. EDMS EDMS 12/02 02:35 00:16 morphine 4 mg IVP once ordered. ck7 ck7 Attachments: 01:29 [facility] Payment Agreement [facility] 12:08 T-Sheet-- Draft Copy gb Chart Complete MTDD
--- NOTE | 2016-12-04 05:12 | EDDOCDS ---
Physician Documentation [facility] Name: Sandy Mirza Age: 26 yrs Sex: Female : 1990 Arrival Date: 12/01/2016 Time: 22:09 Bed 5 Private MD: Alexia Stevens N. Disposition: 12/02/16 02:37 Discharged to Home/Self Care. Impression: Hematuria, Calculus of kidney, Urinary tract infection, site not specified. - Condition is Stable. - Discharge Instructions: Hematuria, Adult, Kidney Stones, Urinary Tract Infection. - Medication Reconciliation, Work Release Form - 2 day, Local Pharmacy Hours form. - Follow up: Private Physician; When: Tomorrow; Reason: Recheck today's complaints, Continuance of care. Follow up: Emergency Department; When: As needed; Reason: Recheck today's complaints, Worsening of conditions, Continuance of care. - Problem is new. - Symptoms have improved. - Notes: CALL [facility] TOMORROW MORNING TO FOLLOW UP TOMORROW, IF BY CHANCE THE SYMPTOMS WORSEN OR THEY ARE UNABLE TO GET YOU IN RETURN TO THE ER Historical: - Allergies: Adhesives (Rash); Ciprofloxacin (Vomit); Dilaudid (Hives, Vomit); Doxycycline (Hives, Vomit); latex sensitive; SULFA (SULFONAMIDES) (Vomit); - Home Meds: 1. Diamox Sequels 500 mg Oral cpER 1 cap once daily 2. multivitamin Oral tab 1 tab daily 3. Ventolin HFA 90 mcg/actuation Nebulizer HFAA 2 puffs every 4-6 hours 4. oxybutynin chloride 10 mg Oral tr24 1 tab once daily 5. Flomax 0.4 mg Oral cp24 1 cap once daily 6. Pyridium 100 mg Oral tab 1 tab 3 times per day 7. oxycodone 5 mg Oral tab 1 tab every 4 hours 8. 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 No barriers to communication noted, The patient speaks fluent Chinese. - Family history: Not pertinent. - : The pt / caregiver states he / she is not on anticoagulants. Home medication list is obtained from the patient. - Exposure Risk Screening:: None identified. 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 5 in. (165.10 cm) (R); Pain 9/10; 12/02 00:18 BP 109 / 73 (auto/); mgs 00:22 Pulse 98 MON; Pulse Ox 96% ; mgs 00:22 BP 108 / 71; Pulse 71; Resp 18; Temp 97.8(TE); Pulse Ox 99% on R/A; mgs 02:37 BP 108 / 71 (auto/); mgs 02:38 Pulse 84 MON; Pulse Ox 98% ; mgs 03:00 Pulse 92 MON; Pulse Ox 96% ; mgs 03:30 Pulse 90 MON; Pulse Ox 97% ; mgs 04:00 Pulse 90 MON; Pulse Ox 98% ; mgs 04:06 BP 106 / 76; Pulse 85; Resp 18; Temp 97.2(O); Pulse Ox 98% on R/A; Pain 0/10; mdr 12/01 22:11 Body Mass Index 31.95 (87.09 kg, 165.10 cm) ct3 MDM: 12/01 23:33 UCG by Nursing ordered. jmb 23:34 Urine Culture Ordered. EDMS 23:46 URINALYSIS MANUAL Ordered. EDMS 12/02 00:05 URINALYSIS MANUAL Reviewed. ck7 00:13 Undress patient appropriately for examination ordered. ck7 00:13 IV Saline Lock ordered. ck7 00:13 Ondansetron 4 mg IVP once ordered. ck7 00:13 NS 0.9% 1000 ml IV at bolus once ordered. ck7 00:14 Amylase Ordered. EDMS 00:14 Basic Metabolic Profile Ordered. EDMS 00:14 CBC with Diff Ordered. EDMS 00:14 Lipase Ordered. EDMS 00:14 Liver Profile Ordered. EDMS 00:14 HCG,Serum Qualitative Ordered. EDMS 00:15 NOTHING BY MOUTH+DIET ordered. EDMS 00:16 ketorolac 30 mg IVP once ordered. ck7 00:18 CT ABD & PELVIS: No Contrast Ordered. EDMS 01:05 URINALYSIS MANUAL Reviewed. ck7 01:05 MICROSCOPIC, URINE Reviewed. ck7 : Basic Metabolic Profile Reviewed. ck7 : CBC with Diff Reviewed. ck7 : Liver Profile Reviewed. ck7 01: Amylase Reviewed. ck7 01:05 Lipase Reviewed. ck7 01:05 HCG,Serum Qualitative Reviewed. ck7 :05 Financial registration complete. [facility] 01:29 [facility] Payment Agreement was scanned into [employer]) and attached to record. [facility] 02:35 cefTRIAXone 2 grams IVPB once over 30 mins; dilute in 50mL of NS or D5W ordered. ck7 02:35 Recheck Vital Signs, perform reassessment and enter into [employer] ordered. ck7 12:08 T-Sheet-- Draft Copy was scanned into [employer]) and attached to record. Point of Care Testing: Urine : 12/01 23:41 hCG Reading: Negative; Control Reading: Positive; nb2 Ranges: Administered Medications: 12/02 00:47 Drug: NS 0.9% 1000 ml [sodium chloride 0.9 % intravenous solution] Route: IV; Rate: mgs bolus; Site: right antecubital; 00:47 Drug: ketorolac 30 mg [ketorolac 30 mg/mL (1 mL) injection solution (1 mL)] Route: IVP; mgs Site: right antecubital; 00:48 Drug: Ondansetron 4 mg [ondansetron HCl 2 mg/mL intravenous solution (2 mL)] Route: mgs IVP; Site: right antecubital; 02:35 CANCELLED (Other Intervention Used): morphine 4 mg IVP once ck7 03:01 Drug: cefTRIAXone 2 grams [ceftriaxone 1 gram solution for injection] Route: IVPB; mgs Infused Over: 30 mins; Site: right antecubital; Signatures: Dispatcher MedHo EDMS Nilam Coleman, Reg Reg Janie RubioRN RN rs3 Gilles Velasquez, RPA-C RPA-Cck7 Amos Benson, PSA PSA Cait Stanford [facility] Rusty Wilkinson,RN RN mgs The chart was reviewed and I authenticate all verbal orders and agree with the evaluation and treatment provided.Corrections: (The following items were deleted from the chart) 12/01 23:46 23:34 URINALYSIS+LAB ordered. EDMS EDMS 12/02 02:35 00:16 morphine 4 mg IVP once ordered. ck7 ck7 Attachments: 01:29 [facility] Payment Agreement [facility] 12:08 T-Sheet-- Draft Copy gb Chart Complete MTDD
== END 2016-12-02 04:11 | disposition home or self-care (01) ==
LOC: M ED 22:09
DX: R31.9 Hematuria, unspecified (principal); N21.1 Calculus in urethra; N39.0 Urinary tract infection, site not specified; N13.70 Vesicoureteral-reflux, unspecified; E28.2 Polycystic ovarian syndrome; G43.909 Migraine, unspecified, not intractable, without status migrainosus; G93.2 Benign intracranial hypertension; F17.200 Nicotine dependence, unspecified, uncomplicated; Z98.2 Presence of cerebrospinal fluid drainage device; Z79.899 Other long term (current) drug therapy; Z88.1 Allergy status to other antibiotic agents; Z88.2 Allergy status to sulfonamides; Z88.5 Allergy status to narcotic agent; Z91.040 Latex allergy status; Z91.09 Other allergy status, other than to drugs and biological substances
CPT/HCPCS: 74176; 80048; 80076; 81000; 81025; 82150; 83690; 84703; 85025; 87086; 96374; 96375; 99284; J0696; J1885; J2405

== ENCOUNTER → 2016-12-13 | Outpatient (REF) | payer OTHER | LOC: M SFHCLERA 10:49 | PROVIDERS: ATTEND Nurse Practitioner Family | DX: R30.0 Dysuria (principal); R19.7 Diarrhea, unspecified ==

== ENCOUNTER → 2016-12-27 | Outpatient (REF) | payer OTHER | LOC: M SFHCLERA 11:19 | PROVIDERS: ATTEND Nurse Practitioner Family | DX: R30.0 Dysuria (principal) ==

== ENCOUNTER 2017-01-24 09:55 | Emergency (ER) | payer OTHER ==
[~2017-01-24] VITALS: Ht 165.1 cm; Wt 90.7 kg
[2017-01-24] MEDS ORDERED: TYLE325T5 PO (10:15)
[2017-01-24] MEDS ORDERED: DIAM500C PO (10:15)
[2017-01-24] MEDS ORDERED: KEFL500C7 PO (10:15)
[2017-01-24] MEDS ORDERED: CEFTAROLINE FOSAMIL 600 MG in D5W MINI-BAG PLUS 50 ML IV ONE ×2 (11:15→11:30)
[2017-01-24] MEDS ORDERED: NS 1,000 ML IV ONE (11:15)
[2017-01-24 11:35] LABS: BASO % 0.3 % (0.0-1.0); EOS # 0.2 K/mm3 (0.0-0.50); EOS % 1.2 % (0.0-3.0); LARGE UNSTAINED CELL # 0.1 K/mm3 (0.0-0.4); LARGE UNSTAINED CELL % 0.9 % (0.0-4.0); MEAN CORPUSCULAR HEMOGLOBIN 28.6 pg (27.0-33.0); MEAN CORPUSCULAR HGB CONC 32.7 g/dl (32.0-36.5); MEAN CORPUSCULAR VOLUME 87.4 fl (80.0-96.0); MONO # 0.6 K/mm3 (0.0-0.8); MONO % 4.6 % (0.0-5.0); NEUTROPHILS # 10.5 K/mm3 (1.8-7.7); PLATELET COUNT, AUTOMATED 223 k/mm3 (150-450); RED CELL DISTRIBUTION WIDTH 13.4 % (11.5-14.5); WHITE BLOOD COUNT 13.3 K/mm3 (4.0-10.0)
[2017-01-24 11:59] LABS: ANION GAP 7 MEQ/L (8-16); BLOOD UREA NITROGEN 12 MG/DL (7-18); CALCIUM LEVEL 8.9 MG/DL (8.5-10.1); CARBON DIOXIDE LEVEL 28 MEQ/L (21-32); CHLORIDE LEVEL 104 MEQ/L (98-107); CREATININE FOR GFR 0.73 MG/DL (0.55-1.02); GLOMERULAR FILTRATION RATE > 60.0 (>60); GLUCOSE, FASTING 87 MG/DL (70-105); POTASSIUM SERUM 4.2 MEQ/L (3.5-5.1); SODIUM LEVEL 139 MEQ/L (136-145)
--- NOTE | 2017-01-24 13:56 | REP ---
MAXILL[address]IAL CT WITH CONTRAST: HISTORY: Cellulitis. Contrast: Isovue 370, 75 mL. COMPARISON: 04/01/2016. The sinuses are clear. The osteomeatal units are patent. The middle and inferior nasal turbinates are partially paradoxical. There is very minimal deviation of the nasal septum to the right. The cribriform plate, medial marshall of the orbits and optic canals are intact. The carotid canals form a segment of the posterolateral marshall of the sphenoid sinus. There is soft tissue thickening anterior to the right maxilla and right maxillary sinus. This is consistent with cellulitis. There is thickening of the right platysma muscle and stranding of the overlying subcutaneous tissue consistent with edema. The naso-, krystina- and hypopharynx are normal in appearance. An enlarged lymph node 1.4 cm in width is present in the right internal jugular chain at the level of the oropharynx. Small lymph nodes less than 1 cm in size are present in the left internal jugular chain posterior triangles, and submandibular areas. Contents of the orbits are normal. IMPRESSION: There is soft tissue thickening anterior to the right maxilla and right maxillary sinus consistent with cellulitis. Signed by Elton Tomlinson MD 01/24/2017 02:04 P
[2017-01-24] MEDS ORDERED: CLEO300C2 PO (14:28)
[2017-01-24] MEDS ORDERED: CLINDAMYCIN 150 MG CAP PO ONE (14:30)
[2017-01-24 14:31] VITALS: BP 130/83
== END 2017-01-24 14:57 | disposition home or self-care (01) ==
LOC: M ED 10:54
DX: L03.211 Cellulitis of face (principal); L02.01 Cutaneous abscess of face; J45.909 Unspecified asthma, uncomplicated; E28.2 Polycystic ovarian syndrome; N13.70 Vesicoureteral-reflux, unspecified; Z79.899 Other long term (current) drug therapy; Z88.1 Allergy status to other antibiotic agents; Z88.2 Allergy status to sulfonamides; Z88.8 Allergy status to other drugs, medicaments and biological substances; L23.1 Allergic contact dermatitis due to adhesives

== ENCOUNTER 2017-01-27 09:50 | Inpatient (IN) | payer OTHER ==
[~2017-01-27] VITALS: Ht 165.1 cm; Wt 90.5 kg
[~2017-01-27 09:50] MED LIST changes: +CLEO300C2 PO; +DIAM500C PO; +ISOVUE-370 76% 100ML VIAL (Q9967) As Ordered ONE; +KEFL500C7 PO; +TYLE325T5 PO
[2017-01-27] MEDS ORDERED: ACETAMINOPHEN 500 MG TAB PO PRN (10:00)
--- NOTE | 2017-01-27 10:42 | HPE ---
DATE OF ADMISSION: 01/27/2017 PRIMARY CARE PROVIDER: Alexia Stevens PA-C, with Dr. Terrance Mojica ATTENDING: Dr. Sachin Santos HISTORY: This is a 26-year-old female patient who presents to see me in the outpatient clinic with a five day history of right facial cellulitis with now open and draining lesion on her right face. She states that her symptoms started last Friday with a red painful sore area. She was seen and started on Keflex by an urgent care. She subsequently failed to have improvement with the Keflex. She was seen back in the emergency room on 01/24/2017 and was given a dose of IV Ceftaroline and discharged home on clindamycin 300 mg four times a day, which she has been taking consistently since that time. She notes that she has slightly less redness surrounding the lesion, but the lesion itself is larger in size, is more firm, more tender, and is draining more. She states that she anticipated at this point that she would have less drainage and that lesion would become softer as it is draining more, but in fact it is becoming more painful and seemingly larger. She has had some low grade temperatures over the last couple of days as well. PAST MEDICAL HISTORY (includes) 1. Nephrolithiasis. 2. Asthma. 3. Reflux of the kidneys. 4. Migraines. 5. Hereditary neuropathy. 6. Alopecia. 7. Polycystic ovary syndrome (PCOS). 8. Endometriosis. 9. Menorrhagia. 10. Pseudotumor cerebri. ALLERGIES (include): - ADHESIVES (rash) - CIPRO (rash and nausea) - DILAUDID (nausea and vomiting) - DOXYCYCLINE (rash and nausea) - SULFA DRUGS (nausea and rash) - IBUPROFEN (contraindicated in use for her ) SURGICAL HISTORY (includes): 1. Reconstruction bilaterally due to reflux in 1991. 2. section in 2010. 3. Tonsillectomy in 2012. 4. Stone removal with stent placement in 2016. HOSPITALIZATIONS (include): 1. In 1991, for her renal surgery. 2. In 2010, for induction of labor for stillbirth which resulted in section delivery. 3. Pseudotumor cerebri in March 2016. 4. Hematuria in November 2016. FAMILY HISTORY: Includes father is alive at 56 with hypertension. Mom is alive at 57 with high blood pressure, diabetes, fibromyalgia and lupus. She has a sister who is 31, alive and healthy. She had a stillborn son. She was full term, unknown cause of . SOCIAL HISTORY: She smokes five or less cigarettes a day. She denies recreational drug use. Caffeine is approximately one daily. She does not drink any alcohol. REVIEW OF SYSTEMS: Otherwise negative aside from stated above. She denies any chest pain, palpitations, nausea, vomiting, diarrhea, melena, hematochezia, dysuria, hematuria, polyuria, polydipsia, or polyphagia. She denies any pain in her joints or muscles. She is able to move all of her extremities without difficulty. She denies any significant recurrence of headaches, lightheadedness or dizziness. PHYSICAL EXAMINATION: Weight is 201. Height is 65 inches. Blood pressure 138/78. Heart rate is 123. Respirations 18. Temperature 99.4. Oxygen saturation 96%. In general, this is a pleasant, well developed, well nourished, young female. HEENT: Head is normocephalic, atraumatic. Pupils equal round and reactive to light and accommodation. Extraocular movements are intact. Oropharynx is pink and moist. Neck is supple with mild right anterior cervical lymphadenopathy. Cardiovascular: Tachycardic. Rate is 110 on auscultation. Lungs: Clear to auscultation bilaterally. Abdomen: Soft. Obese. Positive bowel sounds. Nontender. Extremities: Without clubbing, cyanosis or edema. Skin: She has a right face lateral and superior to the upper lip area of redness and induration that is 18 mm x 10 mm in diameter. It is draining purulent bloody drainage. She has some surrounding erythema that extends up to her right nares and down into the chin over the lower jaw line. INVESTIGATIONS: None. ASSESSMENT AND PLAN: 1. Right facial cellulitis with probable abscess. She has failed Keflex and now clindamycin. She had a positive methicillin-resistant Staphylococcus aureus (MRSA) culture in the hospital in the emergency room done on 01/24/2017. Given the amount of drainage, the worsening of her symptoms and the extension of the pain, I am going to directly admit her to the hospital for IV antibiotics. Will start her on IV Ceftaroline. Again, cultures suggested MRSA while she was in the emergency room and therefore Ceftaroline should be sufficient. She does have allergies to doxycycline and sulfa drugs, being Bactrim specifically. This area may need to be incised. Will monitor over the next 24 hours and see if it develops further. 2. Pseudotumor cerebri. Will continue her on her Diamox 250 mg in the morning and 500 mg in the evening. 3. Deep vein thrombosis (DVT) prophylaxis. She should be able to ambulate around the room without any difficulty. I have encouraged her to do so to prevent thromboembolism.
[2017-01-27 11:00] VITALS: BP 134/92
[2017-01-27] MEDS ORDERED: ACET50CA PO (11:30)
[2017-01-27] MEDS ORDERED: ALBU17IN INH (11:33)
[2017-01-27] MEDS ORDERED: ACET25TA PO (11:33)
[2017-01-27 11:43] LABS: BASO % 0.5 % (0.0-1.0); EOS # 0.1 K/mm3 (0.0-0.50); LARGE UNSTAINED CELL # 0.1 K/mm3 (0.0-0.4); LARGE UNSTAINED CELL % 1.3 % (0.0-4.0); LYMPH # 2.2 K/mm3 (1.5-6.5); LYMPH % 19.6 % (24.0-44.0); MEAN CORPUSCULAR HEMOGLOBIN 29.1 pg (27.0-33.0); MEAN CORPUSCULAR HGB CONC 33.5 g/dl (32.0-36.5); MONO # 0.4 K/mm3 (0.0-0.8); MONO % 4.2 % (0.0-5.0); NEUTROPHILS # 7.7 K/mm3 (1.8-7.7); NEUTROPHILS % 73.5 % (36.0-66.0); PLATELET COUNT, AUTOMATED 247 k/mm3 (150-450); WHITE BLOOD COUNT 10.4 K/mm3 (4.0-10.0)
[2017-01-27 11:58] LABS: ANION GAP 8 MEQ/L (8-16); BLOOD UREA NITROGEN 14 MG/DL (7-18); CALCIUM LEVEL 9.1 MG/DL (8.5-10.1); CARBON DIOXIDE LEVEL 27 MEQ/L (21-32); CHLORIDE LEVEL 105 MEQ/L (98-107); CREATININE FOR GFR 0.77 MG/DL (0.55-1.02); GLOMERULAR FILTRATION RATE > 60.0 (>60); GLUCOSE, FASTING 91 MG/DL (70-105); POTASSIUM SERUM 4.1 MEQ/L (3.5-5.1); SODIUM LEVEL 140 MEQ/L (136-145)
[2017-01-27] MEDS: CEFTAROLINE FOSAMIL 600 MG in D5W MINI-BAG PLUS 50 ML IV SCH (13:14)
[2017-01-27] MEDS: AcetaZOLAMIDE 250 MG TAB PO SCH (15:54)
[2017-01-27] MEDS: AcetaZOLAMIDE 500 MG ER CAP PO SCH ×2 (15:54→20:49)
[2017-01-27 16:00] VITALS: BP 133/84
[2017-01-27 20:00] VITALS: BP 143/80
[2017-01-27] MEDS ORDERED: AcetaZOLAMIDE 250 MG TAB PO SCH (21:00)
[2017-01-27] MEDS ORDERED: diphenhydrAMINE 50 MG CAP PO PRN (21:45)
[2017-01-28 00:37] VITALS: BP 132/94
[2017-01-28] MEDS: CEFTAROLINE FOSAMIL 600 MG in D5W MINI-BAG PLUS 50 ML IV SCH ×2 (01:11→12:46)
[2017-01-28 04:00] VITALS: BP 120/70
[2017-01-28 08:00] VITALS: BP 133/77
[2017-01-28] MEDS: AcetaZOLAMIDE 500 MG ER CAP PO SCH ×2 (08:45→21:28)
[2017-01-28] MEDS: AcetaZOLAMIDE 250 MG TAB PO SCH (08:45)
[2017-01-28 12:00] VITALS: BP 132/84
--- NOTE | 2017-01-28 14:33 | IPNPDOC ---
Subjective Date Seen The patient was seen on 01/28/17. Subjective Chief Complaint/HPI The patient is a 26-year-old female admitted with a reason for visit of Right Facial Cellulitis. Events since last encounter Patient is feeling significantly better today. Face is much less swollen. She denies any pain, although was having some itching overnight. Patient states she is allergic to both doxycycline and sulfa drugs. She gets a severe rash with administration of these medications. Constitutional: Denies: Chills, Fever, Malaise, Night Sweats Skin: Reports: Itching, Other (+ right facial cellulitis; MRSA positive) Pulmonary: Denies: Cough, Dyspnea Cardiovascular: Denies: Chest Pain, Palpitations Gastrointestinal: Denies: Abdominal Pain, Constipation, Diarrhea, Nausea, Vomiting Genitourinary: Denies: Dysuria Other systems 10 point review systems otherwise negative Objective Physical Examination General Exam: Positive: Alert, Cooperative, No Acute Distress Eye Exam: Positive: Conjunctiva & lids normal, PERRLA ENT Exam: Positive: Atraumatic, Mucous membr. moist/pink Neck Exam: Positive: Supple Chest Exam: Positive: Clear to auscultation, Normal air movement, Negative: Rales, Rhonchi, Wheezing Heart Exam: Positive: Normal S1, Normal S2, Rate Normal, Regular Rhythm, Negative: Murmurs, Rubs Abdomen Exam: Positive: Normal bowel sounds, Soft, Negative: Hepatospenomegaly, Tenderness Extremity Exam: Positive: Clubbing, Normal pulses, Negative: Cyanosis, Edema Skin Exam: Positive: Nl turgor and temperature, Other skin issue (area of redness and induration in right facial labial crease; likely small area of fluctuance) Psych Exam: Positive: Mental status NL, Oriented x 3 Assessment /Plan Problems (1) Cellulitis and abscess of face Status: Acute Problem Text: Patient is on day 2 of ceftaroline. Symptoms are greatly improved. MRSA positive. Patient unfortunately is allergic to both outpatient oral options. Given her rapid improvement in symptoms, she may not need further inpatient management if she is able to get outpatient infusion set up. -Patient family services consult for outpatient infusions discussion -Continue IV antibiotics -Discussed possible bedside I&D for area of fluctuance; will do watchful waiting at this point Plan/VTE VTE Prophylaxis Ordered?: No VTE Exclusion Mechanical Proph: Low Risk for VTE VTE Exclusion Pharmacological: At Low Risk for VTE Disposition Discussed possible outpatient IV infusions VS, I&O, 24H, Fishbone Vital Signs/I&O Vital Signs Date Time Temp Pulse Resp B/P Pulse Ox O2 Delivery O2 Flow Rate FiO2 01/28/17 12:00 98.0 73 18 132/84 97 Room Air I&O- Last 24 Hours up to 6 AM 01/28/17 06:00 Intake Total 1300 ml Output Total 1400 ml Balance -100 ml Laboratory Data Microbiology Microbiology 01/27/17 Blood Culture - Preliminary, Resulted No growth after 24 hours . All specim... 01/27/17 Wound Culture - Preliminary, Resulted Staphylococcus Aureus MANDEEP GUPTA MD Jan 28, 2017 14:33
[2017-01-28 16:00] VITALS: BP 141/92
[2017-01-28 20:00] VITALS: BP 129/86
[2017-01-29] VITALS: BP 96/54
[2017-01-29] MEDS: CEFTAROLINE FOSAMIL 600 MG in D5W MINI-BAG PLUS 50 ML IV SCH (01:00)
[2017-01-29 01:06] VITALS: BP 111/64
[2017-01-29 04:00] VITALS: BP 100/55
[2017-01-29 07:31] LABS: BASO % 0.4 % (0.0-1.0); EOS # 0.2 K/mm3 (0.0-0.50); EOS % 2.4 % (0.0-3.0); LARGE UNSTAINED CELL # 0.1 K/mm3 (0.0-0.4); LARGE UNSTAINED CELL % 1.2 % (0.0-4.0); LYMPH # 1.9 K/mm3 (1.5-6.5); LYMPH % 21.3 % (24.0-44.0); MEAN CORPUSCULAR HEMOGLOBIN 29.3 pg (27.0-33.0); MEAN CORPUSCULAR HGB CONC 32.7 g/dl (32.0-36.5); MEAN CORPUSCULAR VOLUME 89.6 fl (80.0-96.0); MONO # 0.4 K/mm3 (0.0-0.8); MONO % 4.3 % (0.0-5.0); NEUTROPHILS % 70.4 % (36.0-66.0); PLATELET COUNT, AUTOMATED 234 k/mm3 (150-450); RED CELL DISTRIBUTION WIDTH 13.2 % (11.5-14.5); WHITE BLOOD COUNT 8.4 K/mm3 (4.0-10.0)
[2017-01-29 07:56] LABS: ANION GAP 9 MEQ/L (8-16); BLOOD UREA NITROGEN 15 MG/DL (7-18); CARBON DIOXIDE LEVEL 21 MEQ/L (21-32); CHLORIDE LEVEL 109 MEQ/L (98-107); CREATININE FOR GFR 0.97 MG/DL (0.55-1.02); GLOMERULAR FILTRATION RATE > 60.0 (>60); GLUCOSE, FASTING 101 MG/DL (70-105); POTASSIUM SERUM 3.7 MEQ/L (3.5-5.1); SODIUM LEVEL 139 MEQ/L (136-145)
[2017-01-29 08:00] VITALS: BP 135/91
[2017-01-29] MEDS: AcetaZOLAMIDE 500 MG ER CAP PO SCH (08:11)
[2017-01-29] MEDS: AcetaZOLAMIDE 250 MG TAB PO SCH (08:11)
[2017-01-29] MEDS ORDERED: LINE600T PO (10:07)
--- NOTE | 2017-01-29 10:41 | DSES ---
DATE OF ADMISSION: 01/27/2017 DATE OF DISCHARGE: 01/29/17 ATTENDING PHYSICIAN: Dr. Sachin Santos PRIMARY CARE PROVIDERS: Alexia Stevens and Terrance Mojica HISTORY OF PRESENT ILLNESS: A 26-year-old female who presented to the outpatient clinic with a 5-day history of right facial cellulitis that opened and started to drain on the right side of her face. The patient failed outpatient treatment and was subsequently admitted for intravenous (IV) antibiotics and care. Culture was obtained and showed positive for methicillin-resistant Staphylococcus aureus (MRSA) with sensitivity to vancomycin IV. She was placed on ceftaroline IV and has tolerated that well. The patient has tolerated by mouth intake without difficulty. Laboratories have been stable. Electrolytes have remained stable. Blood pressure has been mildly elevated in the 130s-140s. However, pressure this morning was 100/50, which the patient states is normal for her. On physical examination today, vital signs are stable. She is afebrile. HEENT: Neck is supple without lymphadenopathy or jugular venous distention (JVD). Face shows a visible drying abscess with no drainage or fluctuance. There is no erythema to the face. No facial asymmetry is appreciated. Cardiovascular: Heart rate and rhythm are regular. Pulmonary: Lungs are clear to auscultation bilateral. Abdomen is soft and nontender. Bilateral lower extremities are without edema. Neurological: She is alert and oriented times three. Conversation is appropriate and congruent. ASSESSMENT: 1. Positive methicillin-resistant Staphylococcus aureus facial cellulitis. 2. History of pseudotumor cerebri. 3. History of asthma. PLAN: The patient will be discharged home. Activity is as tolerated. Diet is as tolerated. MEDICATIONS: Are as follows: - linezolid 600 mg by mouth twice a day for 10 days - acetaminophen 325 mg tablets two by mouth every 4 hours as needed for pain - acetazolamide 500 mg by mouth twice a day - acetazolamide 250 mg by mouth every morning - albuterol sulfate two puffs every 4 hours as needed for shortness of breath - melatonin 10 mg by mouth daily The patient will followup with her primary care provider within the next 7 days. If primary care provider is unavailable, she may followup with me. Standard precautions were discussed as far as not spreading MRSA to others. The patient verbalized understanding and agreement with the plan. The patient is discharged in stable satisfactory condition with no further questions at the time of discharge. Attending note: I saw and evaluated the patient on the day of discharge, and I agree with the discharge plan of care as discussed and documented above by Myesha Finley. Sachin Santos MD [facility]
== END 2017-01-29 11:50 | disposition home or self-care (01) | DRG 603 ==
LOC: M PED 10:47
PROVIDERS: ADMIT Family Medicine; ATTEND Family Medicine
DX: L03.211 Cellulitis of face (principal); B95.62 Methicillin resistant Staphylococcus aureus infection as the cause of diseases classified elsewhere; J45.909 Unspecified asthma, uncomplicated; F17.210 Nicotine dependence, cigarettes, uncomplicated; G93.2 Benign intracranial hypertension; Z79.899 Other long term (current) drug therapy; Z88.2 Allergy status to sulfonamides; Z88.8 Allergy status to other drugs, medicaments and biological substances; Z88.6 Allergy status to analgesic agent; Z88.1 Allergy status to other antibiotic agents; Z91.048 Other nonmedicinal substance allergy status; Z96.0 Presence of urogenital implants; Z82.49 Family history of ischemic heart disease and other diseases of the circulatory system; Z83.3 Family history of diabetes mellitus; Z83.2 Family history of diseases of the blood and blood-forming organs and certain disorders involving the immune mechanism

== ENCOUNTER → 2017-04-09 | Outpatient (CLI) | payer OTHER ==
[~2017-04-09] MED LIST changes: +ACET25TA PO; +ACET50CA PO; +ALBU17IN INH; -ISOVUE-370 76% 100ML VIAL (Q9967) As Ordered ONE; +LINE600T PO
--- NOTE | 2017-04-09 07:44 | REP ---
Clinical: Benign intracranial hypertension. Comparison: 12/29/2016. Findings: Lung bases are clear. Visualized heart and pericardium normal. Liver, spleen, pancreas, gallbladder, bilateral adrenal glands and kidneys are essentially normal for noncontrast evaluation. The bilateral 1 - 2 mm nonobstructing renal calculi are identified without hydroureteronephrosis. The enteric system is without obstruction or acute inflammatory process. Pelvis demonstrates collapsed normal bladder and age-appropriate uterus/adnexa. No pelvic fluid or ascites. No free air. No adenopathy. Musculoskeletal structures are intact. An epidural catheter is identified extending to the T1 level and coiled inferiorly with its tip at the L2 level and extending via the right paraspinous musculature into the subcutaneous tissues along the right side of the flank and into the abdomen. Catheter appears intact and without obvious fracture or acute angulation/kink. No associated CSF-aj or peritoneal fluid is appreciated. Impression: 1. Bilateral nonobstructing nephroliths up to 2 mm. 2. Epidural - peritoneal shunt appears intact. Signed by Bridger Clement MD 04/09/2017 07:36 A
[2017-04-09 08:14] LABS: BASO % 0.6 % (0.0-1.0); EOS # 0.2 K/mm3 (0.0-0.50); EOS % 1.8 % (0.0-3.0); LARGE UNSTAINED CELL # 0.1 K/mm3 (0.0-0.4); LARGE UNSTAINED CELL % 1.6 % (0.0-4.0); LYMPH # 2.5 K/mm3 (1.5-6.5); LYMPH % 24.9 % (24.0-44.0); MEAN CORPUSCULAR HEMOGLOBIN 28.5 pg (27.0-33.0); MEAN CORPUSCULAR HGB CONC 32.8 g/dl (32.0-36.5); MEAN CORPUSCULAR VOLUME 86.8 fl (80.0-96.0); MONO # 0.5 K/mm3 (0.0-0.8); NEUTROPHILS # 6.2 K/mm3 (1.8-7.7); NEUTROPHILS % 66.2 % (36.0-66.0); PLATELET COUNT, AUTOMATED 232 k/mm3 (150-450); RED CELL DISTRIBUTION WIDTH 13.7 % (11.5-14.5); WHITE BLOOD COUNT 9.3 K/mm3 (4.0-10.0)
[2017-04-09 08:29] LABS: ALBUMIN 3.9 GM/DL (3.2-5.2); ALBUMIN/GLOBULIN RATIO 1.08 (1.00-1.93); ALKALINE PHOSPHATASE 129 U/L (45-117); ALT/SGPT 20 U/L (12-78); ANION GAP 7 MEQ/L (8-16); AST/SGOT 5 U/L (15-37); BILIRUBIN,TOTAL 0.6 MG/DL (0.2-1.0); BLOOD UREA NITROGEN 13 MG/DL (7-18); CALCIUM LEVEL 8.6 MG/DL (8.5-10.1); CARBON DIOXIDE LEVEL 21 MEQ/L (21-32); CHLORIDE LEVEL 111 MEQ/L (98-107); CREATININE FOR GFR 0.91 MG/DL (0.55-1.02); GLOMERULAR FILTRATION RATE > 60.0 (>60); GLUCOSE, FASTING 102 MG/DL (70-105); POTASSIUM SERUM 3.6 MEQ/L (3.5-5.1); SODIUM LEVEL 139 MEQ/L (136-145); TOTAL PROTEIN 7.5 GM/DL (6.4-8.2)
--- NOTE | 2017-04-09 10:06 | REP ---
SHUNT SERIES: COMPARISON: 06/06/2016. The shunt remains contiguous. It is less coiled in the abdomen terminating in the left mid abdomen. Signed by True Puentes DO 04/09/2017 11:04 A
== END ==
LOC: M RAD 07:06 → M LAB 07:06
PROVIDERS: ATTEND Neurological Surgery
DX: G93.2 Benign intracranial hypertension (principal)

== ENCOUNTER → 2017-04-11 | Outpatient (CLI) | payer OTHER ==
--- NOTE | 2017-04-11 16:00 | REP ---
REASON: Benign intracranial hypertension. History of double vision and headaches. COMPARISON: 03/06/2015 TECHNIQUE: Sagittal T1. Axial T2, FLAIR, DWI and ADC. FINDINGS: The craniocervical junction is normal. There is no cerebellar tonsillar ectopia. The visualized portions of the spinal cord and neural canal are within normal limits. The ventricles and sulci are within normal limits for the patient's age. There are no extra-axial fluid collections. There is no shift of the midline structures. The deep cerebral white matter is within normal limits. Diffusion weighted images and ADC mapping shows no signal abnormality. The orbital and petrous structures, cerebellopontine angles, and posterior fossa are within normal limits. The sella turcica, cavernous and paracavernous structures are within normal limits. The visualized portions of the paranasal sinuses and the mastoid air cells are clear. IMPRESSION: Unremarkable MRI examination of the brain. There has been no significant change compared to the prior exam. Signed by True Puentes DO 04/11/2017 04:24 P
--- NOTE | 2017-04-11 16:03 | REP ---
HISTORY: Benign intracranial hypertension. TECHNIQUE: MIP reformatted 3D images of the washoe of [place] and proximal intracranial vasculature were obtained. The source images wee obtained in the axial scan plane using gradient-echo technique. FINDINGS: There is no evidence of an aneurysm or AVM. Perfusion to the hemispheres is symmetric. There is no evidence of significant signal decrease that would be considered consistent with an area of occlusion or severe stenosis. IMPRESSION: Unremarkable brain MRA. Signed by True Puentes DO 04/11/2017 04:24 P
== END ==
LOC: M RAD 14:40
PROVIDERS: ATTEND Neurological Surgery
DX: G93.2 Benign intracranial hypertension (principal)

== ENCOUNTER → 2017-04-23 | Outpatient (CLI) | payer OTHER ==
[~2017-04-23] MED LIST changes: +ACET250T2 PO; -ACET25TA PO; +ACET500C4 PO; -ACET50CA PO; +KEFL500C17 PO; -KEFL500C7 PO
--- NOTE | 2017-04-23 11:36 | REP ---
Clinical: Productive cough . Comparison: 06/18/2016 . Technique: PA and lateral. Findings: The mediastinum and cardiac silhouette are normal. The lung munoz are clear and without acute consolidation, effusion, or pneumothorax. The skeletal structures are intact and normal. Impression: 1. No acute cardiopulmonary process. Signed by Bridger Clement MD 04/23/2017 11:27 A
== END ==
LOC: M LRY 10:52
PROVIDERS: ATTEND Family Medicine
DX: R05 Cough (principal)

== ENCOUNTER → 2017-04-23 | Outpatient (REF) | payer OTHER | LOC: M SFHCLERA 11:03 | PROVIDERS: ATTEND Family Medicine | DX: N30.00 Acute cystitis without hematuria (principal); R05 Cough ==

== ENCOUNTER 2017-05-31 07:06 | Emergency (ER) | payer OTHER ==
[~2017-05-31] VITALS: Ht 165.1 cm; Wt 91.3 kg
--- NOTE | 2017-05-31 08:39 | REP ---
Right lower extremity deep vein duplex ultrasound: The deep veins demonstrate normal aeration, normal Doppler color flow and normal Doppler wave forms respiration augmentation at multiple levels from the popliteal vein to the common femoral vein. Impression: There is no right lower extremity deep vein thrombosis. Signed by Isaías Sprague MD 05/31/2017 08:30 A
[2017-05-31 08:49] VITALS: BP 130/60
== END 2017-05-31 08:54 | disposition home or self-care (01) ==
LOC: M ED 07:06
DX: S80.11XA Contusion of right lower leg, initial encounter (principal); Z72.0 Tobacco use; W55.89XA Other contact with other mammals, initial encounter; Y92.89 Other specified places as the place of occurrence of the external cause; Y93.89 Activity, other specified; Y99.9 Unspecified external cause status

== ENCOUNTER → 2017-09-08 | Outpatient (REF) | payer OTHER ==
[2017-09-08 19:38] LABS: BASO # 0.1 10^3/uL (0.0-0.2); BASO % 0.6 % (0.0-1.0); EOS # 0.2 10^3/uL (0.0-0.50); IMMATURE GRANULOCYTE % 0.3 % (0-0); LYMPH # 2.4 10^3/uL (1.5-6.5); LYMPH % 26.6 % (24.0-44.0); MEAN CORPUSCULAR HEMOGLOBIN 29.3 pg (27.0-33.0); MEAN CORPUSCULAR HGB CONC 32.8 g/dl (32.0-36.5); MEAN CORPUSCULAR VOLUME 89.2 fl (80.0-96.0); MONO # 0.7 10^3/uL (0.0-0.8); MONO % 7.3 % (0.0-5.0); NEUTROPHILS # 5.7 10^3/uL (1.8-7.7); NEUTROPHILS % 63.2 % (36.0-66.0); PLATELET COUNT, AUTOMATED 269 10^3/uL (150-450); RED CELL DISTRIBUTION WIDTH 12.9 % (11.5-14.5)
[2017-09-08 19:58] LABS: ERYTHROCYTE SEDIMENTATION RATE 13 mm/hr (0-20)
== END ==
LOC: M SFHCADAM 11:53
PROVIDERS: ATTEND Physician Assistant Medical
DX: K21.9 Gastro-esophageal reflux disease without esophagitis (principal); R19.5 Other fecal abnormalities

== ENCOUNTER → 2017-09-22 | Outpatient (REF) | payer OTHER | LOC: M SFHCADAM 18:35 | PROVIDERS: ATTEND Physician Assistant Medical | DX: H65.111 Acute and subacute allergic otitis media (mucoid) (sanguinous) (serous), right ear (principal) ==

== ENCOUNTER 2017-11-21 11:10 | Day surgery (SDC) | payer OTHER ==
[2017-11-21] MEDS ORDERED: ONDANSETRON 4MG/2ML VIAL (J2405) As Ordered (12:03)
[2017-11-21] MEDS: ONDANSETRON 4MG/2ML VIAL (J2405) IV (12:09)
[2017-11-21] MEDS: NS 1,000 ML IV (12:09)
[2017-11-21] MEDS ORDERED: LIDOCAINE 2% INJ 100 MG/5 ML SDV (FOR ANES.) As Ordered (13:30)
[2017-11-21] MEDS ORDERED: PROPOFOL 500 MG/50 ML VIAL As Ordered (13:30)
== END 2017-11-21 14:25 | disposition home or self-care (01) ==
LOC: M OPP 11:10
DX: R19.7 Diarrhea, unspecified (principal); K64.8 Other hemorrhoids; K21.9 Gastro-esophageal reflux disease without esophagitis; K29.70 Gastritis, unspecified, without bleeding; R00.0 Tachycardia, unspecified; E28.2 Polycystic ovarian syndrome; R10.9 Unspecified abdominal pain; R12 Heartburn; Z86.14 Personal history of Methicillin resistant Staphylococcus aureus infection; M54.9 Dorsalgia, unspecified; G43.909 Migraine, unspecified, not intractable, without status migrainosus; G62.9 Polyneuropathy, unspecified; J45.909 Unspecified asthma, uncomplicated; Z87.442 Personal history of urinary calculi; Z98.2 Presence of cerebrospinal fluid drainage device; G93.2 Benign intracranial hypertension; F17.210 Nicotine dependence, cigarettes, uncomplicated; Z88.1 Allergy status to other antibiotic agents; Z88.8 Allergy status to other drugs, medicaments and biological substances; Z88.2 Allergy status to sulfonamides; Z88.5 Allergy status to narcotic agent; Z91.048 Other nonmedicinal substance allergy status; Z79.899 Other long term (current) drug therapy
CPT/HCPCS: 45380

== ENCOUNTER 2017-11-22 15:24 | Emergency (ER) | payer OTHER ==
[2017-11-22 16:34] LABS: URINE PREG TEST NEGATIVE (NEGATIVE)
[2017-11-22 16:35] LABS: CONTROL LINE UCG INT CTR LINE PRESENT
[2017-11-22 16:36] LABS: KETONE, URINE AUTO RFX NEGATIVE (NEGATIVE); LEUKOCYTE ESTERASE UR AUTO RFX NEGATIVE (NEGATIVE); MUCUS, URINE RFX SMALL (NEGATIVE); NITRITE, URINE AUTO RFX NEGATIVE (NEGATIVE); RBC, URINE AUTO RFX 4 /HPF (0-3); SPECIFIC GRAVITY UR AUTO RFX 1.009 (1.002-1.035); SQUAM EPITHELIAL CELL UR AURFX 1 /HPF (0-6); WBC, URINE AUTO RFX 0 /HPF (0-3)
[2017-11-22] MEDS ORDERED: GASTROGRAFIN SOLUTION 30ML (Q9963) As Ordered (18:10)
[2017-11-22] MEDS ORDERED: ONDANSETRON 4MG/2ML VIAL (J2405) As Ordered (18:15)
[2017-11-22] MEDS: MORPHINE 4 MG/ML 1ML SYRINGE IV (18:21)
[2017-11-22] MEDS: GASTROGRAFIN SOLUTION 30ML PO ×2 (18:21→18:51)
[2017-11-22] MEDS: ONDANSETRON 4MG/2ML VIAL (J2405) IV (18:21)
[2017-11-22 18:22] LABS: BASO % 0.4 % (0.0-1.0); EOS # 0.1 10^3/uL (0.0-0.50); HEMATOCRIT 39.6 % (36.0-47.0); HEMOGLOBIN 13.4 g/dl (12.0-16.0); IMMATURE GRANULOCYTE % 0.4 % (0-0); LYMPH # 1.7 10^3/uL (1.5-6.5); LYMPH % 15.9 % (24.0-44.0); MEAN CORPUSCULAR HEMOGLOBIN 29.5 pg (27.0-33.0); MEAN CORPUSCULAR HGB CONC 33.8 g/dl (32.0-36.5); MEAN CORPUSCULAR VOLUME 87.2 fl (80.0-96.0); MONO # 0.5 10^3/uL (0.0-0.8); MONO % 4.5 % (0.0-5.0); NEUTROPHILS # 8.2 10^3/uL (1.8-7.7); NEUTROPHILS % 77.8 % (36.0-66.0); PLATELET COUNT, AUTOMATED 213 10^3/uL (150-450); RED BLOOD COUNT 4.54 10^6/uL (4.00-5.40); RED CELL DISTRIBUTION WIDTH 13.1 % (11.5-14.5); WHITE BLOOD COUNT 10.5 10^3/uL (4.0-10.0)
[2017-11-22] MEDS: NS 1,000 ML IV (18:22)
[2017-11-22 18:28] LABS: ALBUMIN 3.7 GM/DL (3.2-5.2); ALBUMIN/GLOBULIN RATIO 0.95 (1.00-1.93); ALKALINE PHOSPHATASE 101 U/L (45-117); ALT/SGPT 21 U/L (12-78); ANION GAP 8 MEQ/L (8-16); AST/SGOT 9 U/L (7-37); BILIRUBIN,TOTAL 0.2 MG/DL (0.2-1.0); BLOOD UREA NITROGEN 7 MG/DL (7-18); CALCIUM LEVEL 9.1 MG/DL (8.5-10.1); CARBON DIOXIDE LEVEL 26 MEQ/L (21-32); CHLORIDE LEVEL 107 MEQ/L (98-107); CREATININE FOR GFR 0.82 MG/DL (0.55-1.30); GLOMERULAR FILTRATION RATE > 60.0 (>60); GLUCOSE, FASTING 105 MG/DL (70-100); POTASSIUM SERUM 3.9 MEQ/L (3.5-5.1); SODIUM LEVEL 141 MEQ/L (136-145); TOTAL PROTEIN 7.6 GM/DL (6.4-8.2)
[2017-11-22] MEDS ORDERED: ISOVUE-370 76% 100ML VIAL (Q9967) As Ordered (19:36)
[2017-11-22 20:06] LABS: LIPASE 169 U/L (73-393)
== END 2017-11-22 22:06 | disposition home or self-care (01) ==
LOC: M ED 15:24
DX: R10.11 Right upper quadrant pain (principal); R10.31 Right lower quadrant pain; E28.2 Polycystic ovarian syndrome; G93.2 Benign intracranial hypertension; Z87.442 Personal history of urinary calculi; Z98.2 Presence of cerebrospinal fluid drainage device; Z79.899 Other long term (current) drug therapy; Z88.1 Allergy status to other antibiotic agents; Z88.2 Allergy status to sulfonamides; Z88.8 Allergy status to other drugs, medicaments and biological substances; Z91.048 Other nonmedicinal substance allergy status; F17.210 Nicotine dependence, cigarettes, uncomplicated
CPT/HCPCS: J2405

== ENCOUNTER → 2018-05-01 | Outpatient (CLI) | payer OTHER ==
[2018-05-01 12:58] LABS: BASO # 0.1 10^3/uL (0.0-0.2); BASO % 0.6 % (0.0-1.0); EOS # 0.1 10^3/uL (0.0-0.50); EOS % 1.2 % (0.0-3.0); HEMATOCRIT 41.2 % (36.0-47.0); HEMOGLOBIN 13.7 g/dl (12.0-15.5); IMMATURE GRANULOCYTE % 0.4 % (0-3.0); LYMPH # 2.8 10^3/uL (1.5-6.5); LYMPH % 28.9 % (24.0-44.0); MEAN CORPUSCULAR HEMOGLOBIN 30.1 pg (27.0-33.0); MEAN CORPUSCULAR HGB CONC 33.3 g/dl (32.0-36.5); MEAN CORPUSCULAR VOLUME 90.5 fl (80.0-96.0); MONO # 0.8 10^3/uL (0.0-0.8); MONO % 8.5 % (0.0-5.0); NEUTROPHILS # 5.7 10^3/uL (1.8-7.7); NEUTROPHILS % 60.4 % (36.0-66.0); PLATELET COUNT, AUTOMATED 193 10^3/uL (150-450); RED BLOOD COUNT 4.55 10^6/uL (4.00-5.40); RED CELL DISTRIBUTION WIDTH 13.4 % (11.5-14.5); WHITE BLOOD COUNT 9.5 10^3/uL (4.0-10.0)
[2018-05-01 13:13] LABS: INR 1.05; PROTHROMBIN TIME 13.8 SECONDS (12.1-14.4)
[2018-05-01 13:14] LABS: PARTIAL THROMBOPLASTIN TIME 36.4 SECONDS (25.4-37.6)
[2018-05-01 13:25] LABS: ALBUMIN 4.1 GM/DL (3.2-5.2); ALBUMIN/GLOBULIN RATIO 1.24 (1.00-1.93); ALKALINE PHOSPHATASE 85 U/L (45-117); ALT/SGPT 20 U/L (12-78); ANION GAP 10 MEQ/L (8-16); AST/SGOT 8 U/L (7-37); BILIRUBIN,TOTAL 0.3 MG/DL (0.2-1.0); BLOOD UREA NITROGEN 12 MG/DL (7-18); CALCIUM LEVEL 9.3 MG/DL (8.5-10.1); CARBON DIOXIDE LEVEL 26 MEQ/L (21-32); CHLORIDE LEVEL 104 MEQ/L (98-107); CREATININE FOR GFR 0.84 MG/DL (0.55-1.30); FREE T4 1.02 NG/DL (0.76-1.46); GLOMERULAR FILTRATION RATE > 60.0 (>60); GLUCOSE, FASTING 94 MG/DL (70-100); IRON (FE) 66 UG/DL (50-170); PERCENT SATURATION 17.6 % (13.2-45.0); POTASSIUM SERUM 3.8 MEQ/L (3.5-5.1); SODIUM LEVEL 140 MEQ/L (136-145); TOTAL IRON BINDING CAPACITY 376 UG/DL (250-450); TOTAL PROTEIN 7.4 GM/DL (6.4-8.2)
== END ==
LOC: M WUC 08:51
DX: R23.3 Spontaneous ecchymoses (principal)
CPT/HCPCS: 83550

== ENCOUNTER 2018-05-30 03:31 | Emergency (ER) | payer OTHER ==
[2018-05-30 04:01] LABS: BASO # 0.1 10^3/uL (0.0-0.2); BASO % 0.6 % (0.0-1.0); EOS # 0.1 10^3/uL (0.0-0.50); EOS % 0.7 % (0.0-3.0); HEMATOCRIT 43.8 % (36.0-47.0); HEMOGLOBIN 14.8 g/dl (12.0-15.5); IMMATURE GRANULOCYTE % 0.4 % (0-3.0); LYMPH # 3.2 10^3/uL (1.5-6.5); LYMPH % 26.1 % (24.0-44.0); MEAN CORPUSCULAR HEMOGLOBIN 30.2 pg (27.0-33.0); MEAN CORPUSCULAR HGB CONC 33.8 g/dl (32.0-36.5); MEAN CORPUSCULAR VOLUME 89.4 fl (80.0-96.0); MONO # 0.8 10^3/uL (0.0-0.8); MONO % 6.3 % (0.0-5.0); NEUTROPHILS # 8.1 10^3/uL (1.8-7.7); NEUTROPHILS % 65.9 % (36.0-66.0); PLATELET COUNT, AUTOMATED 289 10^3/uL (150-450); WHITE BLOOD COUNT 12.3 10^3/uL (4.0-10.0)
[2018-05-30 04:05] LABS: KETONE, URINE AUTO RFX NEGATIVE (NEGATIVE); LEUKOCYTE ESTERASE UR AUTO RFX 3+ (NEGATIVE); MUCUS, URINE RFX SMALL (NEGATIVE); NITRITE, URINE AUTO RFX NEGATIVE (NEGATIVE); RBC, URINE AUTO RFX TNTC /HPF (0-3); SPECIFIC GRAVITY UR AUTO RFX 1.009 (1.002-1.035); SQUAM EPITHELIAL CELL UR AURFX 1 /HPF (0-6); WBC, URINE AUTO RFX TNTC /HPF (0-3)
[2018-05-30 04:23] LABS: ALBUMIN 4.3 GM/DL (3.2-5.2); ALBUMIN/GLOBULIN RATIO 1.19 (1.00-1.93); ALKALINE PHOSPHATASE 91 U/L (45-117); ALT/SGPT 17 U/L (12-78); ANION GAP 11 MEQ/L (8-16); AST/SGOT 7 U/L (7-37); BILIRUBIN,DIRECT 0.1 MG/DL (0.0-0.2); BILIRUBIN,TOTAL 0.4 MG/DL (0.2-1.0); BLOOD UREA NITROGEN 8 MG/DL (7-18); CALCIUM LEVEL 9.6 MG/DL (8.5-10.1); CARBON DIOXIDE LEVEL 25 MEQ/L (21-32); CHLORIDE LEVEL 106 MEQ/L (98-107); CREATININE FOR GFR 0.99 MG/DL (0.55-1.30); GLOMERULAR FILTRATION RATE > 60.0 (>60); GLUCOSE, FASTING 97 MG/DL (70-100); LIPASE 132 U/L (73-393); POTASSIUM SERUM 3.7 MEQ/L (3.5-5.1); SODIUM LEVEL 142 MEQ/L (136-145); TOTAL PROTEIN 7.9 GM/DL (6.4-8.2)
[2018-05-30] MEDS: KETOROLAC 30 MG/ML VIAL (J1885) IV (05:09)
[2018-05-30] MEDS: MORPHINE 4 MG/ML 1ML VIAL/SYRINGE (J2270) IV (05:09)
[2018-05-30] MEDS: NS 1,000 ML IV (05:09)
[2018-05-30] MEDS: cefTRIAXone SOD 2 GM in D5W MINI-BAG PLUS 50 ML IV (06:59)
== END 2018-05-30 07:23 | disposition home or self-care (01) ==
LOC: M ED 03:31
DX: N20.0 Calculus of kidney (principal); N20.2 Calculus of kidney with calculus of ureter; E11.9 Type 2 diabetes mellitus without complications
CPT/HCPCS: J0696

== ENCOUNTER → 2018-06-03 | Outpatient (CLI) | payer OTHER | LOC: M LAB 07:27 | DX: H05.10 Unspecified chronic inflammatory disorders of orbit (principal) | CPT/HCPCS: 75809 ==

== ENCOUNTER → 2018-07-21 | Outpatient (REF) | payer OTHER | LOC: M LAB REF 12:21 | DX: J06.9 Acute upper respiratory infection, unspecified (principal) ==

== ENCOUNTER 2018-08-19 02:50 | Emergency (ER) | payer OTHER ==
[2018-08-19] MEDS: HYDROMORPHONE HCL 0.5 MG/ 0.5 ML SYRINGE (J1170 PER 1) IV (04:17)
[2018-08-19] MEDS: METOCLOPRAMIDE INJ 10MG/2ML VIAL (J2765) IV (04:17)
[2018-08-19 04:19] LABS: BASO % 0.3 % (0.0-1.0); EOS % 0.3 % (0.0-3.0); HEMATOCRIT 39.3 % (36.0-47.0); HEMOGLOBIN 13.1 g/dl (12.0-15.5); IMMATURE GRANULOCYTE % 0.4 % (0-3.0); LYMPH # 1.1 10^3/uL (1.5-6.5); LYMPH % 9.9 % (24.0-44.0); MEAN CORPUSCULAR HEMOGLOBIN 30.7 pg (27.0-33.0); MEAN CORPUSCULAR HGB CONC 33.3 g/dl (32.0-36.5); MONO # 0.4 10^3/uL (0.0-0.8); MONO % 3.8 % (0.0-5.0); NEUTROPHILS # 9.8 10^3/uL (1.8-7.7); NEUTROPHILS % 85.3 % (36.0-66.0); PLATELET COUNT, AUTOMATED 207 10^3/uL (150-450); RED BLOOD COUNT 4.27 10^6/uL (4.00-5.40); RED CELL DISTRIBUTION WIDTH 13.4 % (11.5-14.5); WHITE BLOOD COUNT 11.5 10^3/uL (4.0-10.0)
[2018-08-19 04:52] LABS: ANION GAP 7 MEQ/L (8-16); BLOOD UREA NITROGEN 9 MG/DL (7-18); C REACTIVE PROTEIN QUANTITATIV 0.37 MG/DL (0.00-0.30); CALCIUM LEVEL 8.6 MG/DL (8.5-10.1); CARBON DIOXIDE LEVEL 24 MEQ/L (21-32); CHLORIDE LEVEL 109 MEQ/L (98-107); CREATININE FOR GFR 0.86 MG/DL (0.55-1.30); GLOMERULAR FILTRATION RATE > 60.0 (>60); GLUCOSE, FASTING 93 MG/DL (70-100); POTASSIUM SERUM 3.7 MEQ/L (3.5-5.1); SODIUM LEVEL 140 MEQ/L (136-145)
== END 2018-08-19 05:46 | disposition short-term general hospital (02) ==
LOC: M ED 02:50
DX: R51 Headache (principal); G97.82 Other postprocedural complications and disorders of nervous system; Z86.69 Personal history of other diseases of the nervous system and sense organs; Z88.8 Allergy status to other drugs, medicaments and biological substances; Z88.1 Allergy status to other antibiotic agents; Z88.2 Allergy status to sulfonamides; Z91.048 Other nonmedicinal substance allergy status
CPT/HCPCS: J2765

== ENCOUNTER → 2018-10-27 | Outpatient (REF) | payer OTHER ==
[~2018-10-27] MED LIST changes: +ACET650T3 PO; -LINE600T PO; +LINE600T11 PO; +MACR100C43 PO; +METF500T13 PO; +MULT1TAB10 PO; +OXYC1SOL3 PO; +PROT1TAB2 PO; +TRAZ-163 PO; +UNIS25TA3 PO; +ZOFR4TAB16 PO
== END ==
LOC: M SFHCWAGY 12:34
PROVIDERS: ATTEND Nurse Practitioner Women's Health
DX: Z12.4 Encounter for screening for malignant neoplasm of cervix (principal)

== ENCOUNTER → 2018-11-12 | Outpatient (REF) | payer OTHER | LOC: M SFHCADAM 07:52 | PROVIDERS: ATTEND Physician Assistant Medical | DX: E28.2 Polycystic ovarian syndrome (principal); E66.01 Morbid (severe) obesity due to excess calories; E53.8 Deficiency of other specified B group vitamins; E55.9 Vitamin D deficiency, unspecified; Z53.9 Procedure and treatment not carried out, unspecified reason ==

== ENCOUNTER → 2019-07-03 | Outpatient (REF) | payer OTHER ==
[~2019-07-03] MED LIST changes: +LINE1TAB6 PO; -LINE600T11 PO
== END ==
LOC: M SFHCLERA 09:58
PROVIDERS: ATTEND Nurse Practitioner Family
DX: N92.6 Irregular menstruation, unspecified (principal)

== ENCOUNTER → 2019-09-03 | Outpatient (REF) | payer OTHER | LOC: M SFHCADAM 12:23 | PROVIDERS: ATTEND Family Medicine | DX: L02.91 Cutaneous abscess, unspecified (principal) | CPT/HCPCS: 87070; 87077; 87186; 87205; G0463 ==

== ENCOUNTER → 2019-09-22 | Outpatient (REF) | payer OTHER ==
[2019-09-22 14:45] LABS: INFLUENZA A AMPLIFICATION NEGATIVE (NEGATIVE); INFLUENZA B AMPLIFICATION NEGATIVE (NEGATIVE)
== END ==
LOC: M LAB REF 13:07
PROVIDERS: ATTEND Physician Assistant
DX: J11.1 Influenza due to unidentified influenza virus with other respiratory manifestations (principal)

== ENCOUNTER → 2019-11-22 | Outpatient (REF) | payer OTHER ==
[~2019-11-22] MED LIST changes: -TRAZ-163 PO; +TRAZ-257 PO
[2019-11-22 13:38] LABS: BASO % 0.4 % (0.0-1.0); EOS # 0.1 10^3/uL (0.0-0.5); EOS % 1.7 % (0.0-3.0); HEMATOCRIT 39.9 % (36.0-47.0); HEMOGLOBIN 12.9 g/dl (12.0-15.5); LYMPH # 2.1 10^3/uL (1.5-5.0); LYMPH % 29.8 % (24.0-44.0); MEAN CORPUSCULAR HEMOGLOBIN 30.6 pg (27.0-33.0); MEAN CORPUSCULAR HGB CONC 32.3 g/dl (32.0-36.5); MEAN CORPUSCULAR VOLUME 94.8 fl (80.0-96.0); MONO # 0.6 10^3/uL (0.0-0.8); MONO % 8.2 % (0.0-5.0); NEUTROPHILS # 4.1 10^3/uL (1.5-8.5); NEUTROPHILS % 59.6 % (36.0-66.0); PLATELET COUNT, AUTOMATED 201 10^3/uL (150-450); RED BLOOD COUNT 4.21 10^6/uL (4.00-5.40); WHITE BLOOD COUNT 6.9 10^3/uL (4.0-10.0)
[2019-11-22 14:03] LABS: FREE T4 1.11 NG/DL (0.76-1.46); THYROID STIMULATING HORMONE 1.79 uIU/ML (0.358-3.740)
== END ==
LOC: M SFHCADAM 07:50
PROVIDERS: ATTEND Physician Assistant Medical
DX: E66.01 Morbid (severe) obesity due to excess calories (principal); L65.9 Nonscarring hair loss, unspecified; E53.8 Deficiency of other specified B group vitamins
CPT/HCPCS: 82607; 84439; 84443; 85025; G0463

== ENCOUNTER → 2019-11-24 | Outpatient (REF) | payer OTHER ==
[2019-11-24 19:38] LABS: CHLAMYDIA DNA AMPLIFICATION NEGATIVE (NEGATIVE); GC DNA AMPLIFICATION NEGATIVE (NEGATIVE)
== END ==
LOC: M SFHCWAGY 17:02
PROVIDERS: ATTEND Nurse Practitioner Women's Health
DX: Z12.4 Encounter for screening for malignant neoplasm of cervix (principal); Z11.3 Encounter for screening for infections with a predominantly sexual mode of transmission; R87.610 Atypical squamous cells of undetermined significance on cytologic smear of cervix (ASC-US); N76.0 Acute vaginitis
CPT/HCPCS: 87624; 87661; G0123; G0463

== ENCOUNTER 2020-01-14 06:39 | Day surgery (SDC) | payer OTHER ==
[~2020-01-14] VITALS: Ht 165.1 cm; Wt 72.1 kg
[~2020-01-14 06:39] MED LIST changes: +PRENTAB9 PO; +PROAAER10 INH
[2020-01-14] MEDS ORDERED: LIDOCAINE 2% INJ 100 MG/5 ML SDV (FOR ANES.) As Ordered ONE (07:13)
[2020-01-14] MEDS ORDERED: propofoL 200 MG/20 ML VIAL As Ordered ONE (07:13)
[2020-01-14] MEDS ORDERED: MIDAZOLAM INJ 2 MG/2 ML VIAL (J2250) As Ordered ONE (07:14)
[2020-01-14] MEDS ORDERED: fentaNYL 100 MCG/2 ML INJECTION (J3010) As Ordered ONE (07:14)
[2020-01-14 07:23] LABS: HEMATOCRIT 39.8 % (36.0-47.0); HEMOGLOBIN 13.7 g/dl (12.0-15.5); MEAN CORPUSCULAR HEMOGLOBIN 31.4 pg (27.0-33.0); MEAN CORPUSCULAR HGB CONC 34.4 g/dl (32.0-36.5); MEAN CORPUSCULAR VOLUME 91.3 fl (80.0-96.0); PLATELET COUNT, AUTOMATED 226 10^3/uL (150-450); RED BLOOD COUNT 4.36 10^6/uL (4.00-5.40); WHITE BLOOD COUNT 8.4 10^3/uL (4.0-10.0)
[2020-01-14] MEDS ORDERED: ONDANSETRON 4MG/2ML VIAL (J2405) As Ordered ONE (07:59)
[2020-01-14] MEDS ORDERED: ACETAMINOPHEN 1000MG 100ML IV BTL (OFIRMEV) (J0131 PER 10MG) As Ordered ONE (07:59)
[2020-01-14] MEDS ORDERED: dexameTHASONE 4 MG/ML 1ML VIAL (J1100) As Ordered ONE (07:59)
[2020-01-14] MEDS ORDERED: METOCLOPRAMIDE INJ 10MG/2ML VIAL (J2765) As Ordered ONE (07:59)
[2020-01-14] MEDS ORDERED: ONDANSETRON 4MG/2ML VIAL (J2405) IV PRN (08:30)
[2020-01-14] MEDS ORDERED: PERCOCET 5MG/325MG TAB PO PRN (08:30)
[2020-01-14] MEDS ORDERED: LR 1,000 ML IV SCH ×2 (08:30)
[2020-01-14] MEDS ORDERED: ACETAMINOPHEN 500 MG TAB PO ONE (08:30)
[2020-01-14] MEDS ORDERED: fentaNYL 100 MCG/2 ML INJECTION (J3010) IV PRN (08:30)
[2020-01-14 09:30] VITALS: BP 120/67
--- NOTE | 2020-01-14 20:11 | RO ---
DATE OF PROCEDURE: 01/14/2020 PREPROCEDURE DIAGNOSIS: Endometrial polyp. POSTPROCEDURE DIAGNOSIS: Endometrial polyp. OPERATIVE PROCEDURE: Hysteroscopy with MyoSure polypectomy. SURGEON: Elton Bruno MD DIRECTOR GEOTHERMAL OPERATIONS: ANESTHESIA: Laryngeal mask airway (LMA). ESTIMATED BLOOD LOSS: 10 mL URINE OUTPUT: 100 mL. FINDINGS: 1.5 cm endometrial polyp attached at the fundus, otherwise normal appearing endometrial cavity. DESCRIPTION OF PROCEDURE: The patient was taken to the operating room where LMA anesthesia was induced. She was prepped and draped in a sterile fashion in the dorsal lithotomy position. The bladder was emptied with a catheter. A speculum was placed. The anterior lip of the cervix was grasped with a tenaculum. The cervix was dilated with tapered dilators. Hysteroscope with MyoSure was inserted through the internal os. Visualization of the endometrial cavity revealed the findings noted above. The MyoSure device was used to remove an endometrial polyp in its entirety. Endometrial cavity appeared normal at the end of the procedure. All instruments were removed. Sponge and instrument counts were correct. The patient went to the recovery room in stable condition.
== END 2020-01-14 09:38 | disposition home or self-care (01) ==
LOC: M SDC 06:39
PROVIDERS: ATTEND Specialist
DX: N84.0 Polyp of corpus uteri (principal); E28.2 Polycystic ovarian syndrome; N92.0 Excessive and frequent menstruation with regular cycle; N94.6 Dysmenorrhea, unspecified; N80.9 Endometriosis, unspecified; G93.2 Benign intracranial hypertension; G43.909 Migraine, unspecified, not intractable, without status migrainosus; K21.9 Gastro-esophageal reflux disease without esophagitis; Z87.442 Personal history of urinary calculi; G60.9 Hereditary and idiopathic neuropathy, unspecified; L65.9 Nonscarring hair loss, unspecified; M54.9 Dorsalgia, unspecified; Z88.1 Allergy status to other antibiotic agents; Z88.8 Allergy status to other drugs, medicaments and biological substances; Z88.2 Allergy status to sulfonamides; Z91.048 Other nonmedicinal substance allergy status; Z79.899 Other long term (current) drug therapy; Z79.84 Long term (current) use of oral hypoglycemic drugs
CPT/HCPCS: 36415; 58558; 81025; 85027; 88305; J0131; J1100; J2250; J2405; J2765; J3010

== ENCOUNTER → 2020-01-20 | Outpatient (CLI) | payer OTHER | LOC: M LABSMTC 10:13 | PROVIDERS: ATTEND Family Medicine | DX: Z11.59 Encounter for screening for other viral diseases (principal); Z20.828 Contact with and (suspected) exposure to other viral communicable diseases ==

== ENCOUNTER → 2020-08-01 | Outpatient (REF) | payer OTHER ==
[2020-08-01 14:35] LABS: HEMATOCRIT 36.3 % (36.0-47.0); HEMOGLOBIN 12.1 g/dl (12.0-15.5); MEAN CORPUSCULAR HEMOGLOBIN 30.7 pg (27.0-33.0); MEAN CORPUSCULAR HGB CONC 33.3 g/dl (32.0-36.5); MEAN CORPUSCULAR VOLUME 92.1 fl (80.0-96.0); PLATELET COUNT, AUTOMATED 188 10^3/uL (150-450); RED BLOOD COUNT 3.94 10^6/uL (4.00-5.40); WHITE BLOOD COUNT 8.5 10^3/uL (4.0-10.0)
[2020-08-01 15:33] LABS: HEPATITIS C VIRUS ABY INDEX 0.1 INDEX (<0.8); HIV 1&2 SCREEN CENTAUR NEGATIVE (NEGATIVE)
== END ==
LOC: M PLALAB 09:26
PROVIDERS: ATTEND Specialist
DX: Z34.81 Encounter for supervision of other normal pregnancy, first trimester (principal)

== ENCOUNTER → 2020-08-15 | Outpatient (REF) | payer OTHER | LOC: M SFHCWAGY 13:42 | PROVIDERS: ATTEND Specialist | DX: Z34.81 Encounter for supervision of other normal pregnancy, first trimester (principal) | CPT/HCPCS: 87086; 87490; 87590; G0463 ==

== ENCOUNTER → 2020-09-06 | Outpatient (CLI) | payer SELFPAY | LOC: M LABSMTC 12:20 | PROVIDERS: ATTEND Pediatrics | DX: Z20.828 Contact with and (suspected) exposure to other viral communicable diseases (principal) ==

== ENCOUNTER → 2020-09-12 | Outpatient (REF) | payer OTHER ==
[2020-09-12 13:19] LABS: HEMOGLOBIN A1c 4.5 %
== END ==
LOC: M PLALAB 09:10
PROVIDERS: ATTEND Obstetrics & Gynecology
DX: O09.291 Supervision of pregnancy with other poor reproductive or obstetric history, first trimester (principal); Z3A.00 Weeks of gestation of pregnancy not specified
CPT/HCPCS: 83036; G0463

== ENCOUNTER → 2020-10-31 | Outpatient (REF) | payer OTHER ==
[2020-10-31 11:15] LABS: HEMOGLOBIN A1c 4.4 %
== END ==
LOC: M PLALAB 07:58
PROVIDERS: ATTEND Obstetrics & Gynecology
DX: O09.291 Supervision of pregnancy with other poor reproductive or obstetric history, first trimester (principal)

== ENCOUNTER → 2020-11-06 | Outpatient (CLI) | payer OTHER ==
--- NOTE | 2020-11-06 09:46 | REP ---
INDICATION: ANATOMY COMPARISON: None. TECHNIQUE: Transabdominal obstetrical ultrasound with color Doppler evaluation. FINDINGS: Examination demonstrates a single live intrauterine in variable presentation. motion is identified by technologist. Placenta is noted posteriorly, low lying and grade 1 less than 5 mm from the closed internal os. Cervix measures 4.1 cm in length and appears closed.. Gestational age by current measurements 20 weeks 0 days with DELTA 03/26/2021. FHR equals 139 beats per minute. BPD: 4.3 cm there is 19 weeks 1 day HC: 17.0 cm 19 weeks 4 days AC: 15.3 cm 20 weeks 4 days FL: 3.3 cm there is 20 weeks 3 days HL: 3.2 cm there is 20 weeks 5 days HC/AC: Is 1.11 Estimated weight 344 grams (78thpercentile). Anatomical assessment demonstrates normal structures including cranium, choroid plexus, cavum, cerebellum/posterior fossa, facial features, lungs, diaphragm, stomach, cord insertion/three-vessel cord, kidneys/bladder, spine, and extremities. IMPRESSION: 1. Single live intrauterine in variable presentation demonstrating appropriate interval growth. 2. Low lying posterior placenta 5 mm from the closed internal os. 3. Limited evaluation of the four-chamber heart with the remainder of the anatomical assessment appearing normal. <Electronically signed by Bridger Clement > 11/06/20 [id number]
== END ==
LOC: M WHC 07:50
PROVIDERS: ATTEND Obstetrics & Gynecology
DX: O09.292 Supervision of pregnancy with other poor reproductive or obstetric history, second trimester (principal)

== ENCOUNTER → 2020-11-08 | Outpatient (REF) | payer OTHER ==
[2020-11-08 10:39] LABS: HEMATOCRIT 34.9 % (36.0-47.0); HEMOGLOBIN 11.8 g/dl (12.0-15.5); MEAN CORPUSCULAR HEMOGLOBIN 31.2 pg (27.0-33.0); MEAN CORPUSCULAR HGB CONC 33.8 g/dl (32.0-36.5); MEAN CORPUSCULAR VOLUME 92.3 fl (80.0-96.0); PLATELET COUNT, AUTOMATED 151 10^3/uL (150-450); RED BLOOD COUNT 3.78 10^6/uL (4.00-5.40); WHITE BLOOD COUNT 8.9 10^3/uL (4.0-10.0)
[2020-11-08 11:18] LABS: ALBUMIN 3.3 GM/DL (3.2-5.2); ALT/SGPT 14 U/L (12-78); BILIRUBIN,TOTAL 0.3 MG/DL (0.2-1.0); BLOOD UREA NITROGEN 7 MG/DL (7-18); CALCIUM LEVEL 8.8 MG/DL (8.5-10.1); CARBON DIOXIDE LEVEL 26 MEQ/L (21-32); CHLORIDE LEVEL 106 MEQ/L (98-107); GLOMERULAR FILTRATION RATE > 60.0 (>60); GLUCOSE, FASTING 76 MG/DL (70-100); MAGNESIUM LEVEL 2.1 MG/DL (1.8-2.4); POTASSIUM SERUM 3.9 MEQ/L (3.5-5.1); SODIUM LEVEL 137 MEQ/L (136-145); TOTAL PROTEIN 6.8 GM/DL (6.4-8.2)
== END ==
LOC: M PLALAB 08:57
PROVIDERS: ATTEND Obstetrics & Gynecology
DX: R42 Dizziness and giddiness (principal)
CPT/HCPCS: 36415; 80053; 83735; 85027; G0463

== ENCOUNTER → 2020-11-14 | Outpatient (CLI) | payer OTHER ==
--- NOTE | 2020-11-14 08:18 | REP ---
INDICATION: N64.52 BLOODY DISCHARGE RIGHT NIPPLE. Patient reports bloody nipple discharge x5 weeks. Twenty-one weeks . The patient reports that the symptom happened with a previous . COMPARISON: No comparison breast imaging.. TECHNIQUE: Targeted right breast retroareolar sonography. FINDINGS: Targeted right breast retroareolar sonography shows heterogeneous fibroglandular background echotexture. No retroareolar mass, cyst, prominent duct pattern or other abnormality is seen. IMPRESSION: BI-RADS category 1-findings. Clinical follow-up is advised. Discharge cytology could be considered. Breast MRI study may provide additional information although gadolinium enhancement would be recommended and if feasible, this would best be done after delivery. <Electronically signed by Carlos Aguayo > 11/14/20 [id number]
== END ==
LOC: M WHC 07:01
PROVIDERS: ATTEND Obstetrics & Gynecology
DX: O99.891 Other specified diseases and conditions complicating pregnancy (principal); N64.52 Nipple discharge; Z3A.21 21 weeks gestation of pregnancy

== ENCOUNTER → 2020-12-04 | Outpatient (CLI) | payer OTHER ==
--- NOTE | 2020-12-04 09:14 | REP ---
INDICATION: EVALUATE WELLBEING AND PLACENTA,HX LOW LYING PLACENTA COMPARISON: 11/06/2020 TECHNIQUE: Transabdominal and transvaginal obstetrical ultrasound with color Doppler evaluation. FINDINGS: Examination demonstrates a single live intrauterine in breech presentation. motion is identified by technologist. Placenta is noted posterior, low lying and grade 1 measuring 7 mm from the closed internal os. Amniotic fluid volume is normal. Cervix measures 3.2 cm in length and appears closed.. Gestational age by LMP 23 weeks 5 days with DELTA 03/28/2021. Gestational age by current measurements 24 weeks 3 days with DELTA 03/23/2021. FHR equals 153 beats per minute. Estimated weight 739 grams (89thpercentile). Anatomical assessment demonstrates normal structures including cranium, facial profile, diaphragm, stomach, abdominal wall, kidneys/bladder, spine, and three-vessel cord. Continued limited evaluation of the heart due to positioning. IMPRESSION: Single live intrauterine demonstrating appropriate interval growth. Limited evaluation of the heart again due to positioning. Low lying placenta 7 mm from the closed internal os. Cervix measures 3.2 cm in length. <Electronically signed by rBidger Clement > 12/04/20 [id number]
== END ==
LOC: M WHC 06:47
PROVIDERS: ATTEND Obstetrics & Gynecology
DX: O44.52 Low lying placenta with hemorrhage, second trimester (principal); Z3A.23 23 weeks gestation of pregnancy

== ENCOUNTER 2020-12-22 21:33 | Outpatient (CLI) | payer OTHER ==
[~2020-12-22] VITALS: Ht 165.1 cm; Wt 81.7 kg
[2020-12-22 21:47] VITALS: BP 110/75
[2020-12-22 22:27] LABS: APPEARANCE, URINE CLEAR (CLEAR); BACTERIA, URINE AUTO NEGATIVE (NEGATIVE); BILIRUBIN, URINE AUTO NEGATIVE (NEGATIVE); BLOOD, URINE BLOOD NEGATIVE (NEGATIVE); COLOR, URINE COLORLESS (YELLOW); GLUCOSE, URINE (UA) AUTO NEGATIVE (NEGATIVE); KETONE, URINE AUTO NEGATIVE (NEGATIVE); LEUKOCYTE ESTERASE, URINE AUTO NEGATIVE (NEGATIVE); NITRITE, URINE AUTO NEGATIVE (NEGATIVE); PROTEIN, URINE AUTO NEGATIVE (NEGATIVE); RBC, URINE AUTO 0 /HPF (0-3); SPECIFIC GRAVITY URINE AUTO 1.001 (1.002-1.035); SQUAMOUS EPITHELIAL CELL UR AU 0 /HPF (0-6); UROBILINOGEN, URINE AUTO 0.2 mg/dL (0.0-2.0); WBC, URINE AUTO 0 /HPF (0-3)
[2020-12-22 22:42] VITALS: BP 107/61
[2020-12-22] MEDS ORDERED: IRON325T2 PO (22:47)
--- NOTE | 2020-12-22 23:02 | REPVR ---
PROCEDURE INFORMATION: Exam: US , Limited Exam date and time: 12/22/2020 10:44 PM Age: 30 years old Clinical indication: Lmp or gestational age (in weeks): 27w 0d; Other: Vaginal bleeding, known low lying placenta; ; Additional info: Low lying placenta, spotting TECHNIQUE: Imaging protocol: Real-time ultrasound of the maternal uterus with image documentation. Exam focused on the clinical indication. COMPARISON: OBS LIMITED US 12/04/2020 7:39 AM FINDINGS: Gestation: Single intrauterine fetus. presentation: Breech presentation. heart rate: heartbeat of 145 bpm. Placenta: Posterior placenta which extends to 2.6 cm above the internal os transabdominal and 3.0 transvaginal. Amniotic fluid index: Normal SHERON of 15.7 cm. ANATOMICAL SURVEY: anatomy: The stomach, kidneys, profile, face and bladder appear normal. MATERNAL: Cervix: The cervix is closed measuring 5.3 cm transabdominal and 4.4 cm transvaginal. IMPRESSION: 1. Single live intrauterine fetus in breech presentation. 2. Posterior placenta extending to 3.0 cm above the internal os. 3. Closed cervix measuring 4.4 cm. Electronically signed by: Rafael Snyder On 12/22/2020 23:03:17 PM
--- NOTE | 2020-12-22 23:31 | IPNPDOC ---
Text Note Date of Service The patient was seen on 12/22/20. NOTE Outpatient 30 yo DELTA 03/28/2021. Presents @ 26w2d with reports of accidentally being kneed by partner in the shower. She then states she experienced spotting on a wipe and little in the toilet. Hx significant for known low lying placenta and hx term IUFD. No distress, VSS Abdomen soft, gravid. Bedside sono shows breech presentation Cat I tracing Spec exam - cervix visually LTC, no evidence blood in vault or from os TVUS shows placenta 3.0 cm from os. SHERON 15.7. Cervix 4.4cm and closed Discharged home. Reassured. warnings reviewed. Keep next appt VS,Fishbone, I+O VS, Fishbone, I+O Vital Signs Date Time Temp Pulse Resp B/P (MAP) Pulse Ox O2 Delivery O2 Flow Rate FiO2 12/22/20 22:42 100 107/61 (76) 12/22/20 21:47 98.4 16 Kimberli Eaton CNM Dec 22, 2020 23:31
== END 2020-12-22 23:31 | disposition home or self-care (01) ==
LOC: M LDO 21:33
PROVIDERS: ATTEND Advanced Practice Midwife
DX: O99.891 Other specified diseases and conditions complicating pregnancy (principal); O9A.212 Injury, poisoning and certain other consequences of external causes complicating pregnancy, second trimester; S39.81XA Other specified injuries of abdomen, initial encounter; Z3A.26 26 weeks gestation of pregnancy
CPT/HCPCS: 76815; 76817; 76819; 81001; 87086; G0378; G0463

== ENCOUNTER → 2021-01-01 | Outpatient (REF) | payer OTHER ==
[~2021-01-01] MED LIST changes: +IRON325T2 PO
[2021-01-01 10:24] LABS: HEMATOCRIT 35.6 % (36.0-47.0); HEMOGLOBIN 12.2 g/dl (12.0-15.5); MEAN CORPUSCULAR HEMOGLOBIN 32.5 pg (27.0-33.0); MEAN CORPUSCULAR HGB CONC 34.3 g/dl (32.0-36.5); MEAN CORPUSCULAR VOLUME 94.9 fl (80.0-96.0); PLATELET COUNT, AUTOMATED 136 10^3/uL (150-450); RED BLOOD COUNT 3.75 10^6/uL (4.00-5.40); WHITE BLOOD COUNT 10.6 10^3/uL (4.0-10.0)
== END ==
LOC: M PLALAB 07:59
PROVIDERS: ATTEND Obstetrics & Gynecology
DX: O09.292 Supervision of pregnancy with other poor reproductive or obstetric history, second trimester (principal); O26.892 Other specified pregnancy related conditions, second trimester

== ENCOUNTER → 2021-01-01 | Outpatient (CLI) | payer OTHER ==
--- NOTE | 2021-01-01 08:43 | REP ---
INDICATION: F/U ANATOMY COMPARISON: 12/22/2020 TECHNIQUE: Transabdominal obstetrical ultrasound with color Doppler evaluation. FINDINGS: Examination demonstrates a single live intrauterine in variable presentation. motion is identified by technologist. Placenta is noted posterior and grade 1 without evidence for placenta previa or abruption. Amniotic fluid volume is normal. Cervix measures 4.0 cm in length and appears closed.. Gestational age by LMP 27 weeks 5 days with DELTA 03/28/2021. Gestational age by current measurements 28 weeks 4 days with DELTA 03/22/2021. FHR equals 153 beats per minute. Estimated weight 1253 grams (72ndpercentile). Anatomical assessment demonstrates normal structures including cranium, facial profile, four-chamber heart/ventricular outflow tract, stomach, kidneys, bladder, spine and three-vessel cord.. IMPRESSION: Single live intrauterine in variable presentation demonstrating appropriate estimated weight and growth. In conjunction with prior examination anatomical assessment is complete and normal. <Electronically signed by Bridger Clement > 01/01/21 [id number]
== END ==
LOC: M WHC 06:55
PROVIDERS: ATTEND Obstetrics & Gynecology
DX: Z36.9 Encounter for antenatal screening, unspecified (principal); O09.292 Supervision of pregnancy with other poor reproductive or obstetric history, second trimester; Z3A.28 28 weeks gestation of pregnancy

== ENCOUNTER → 2021-01-31 | Outpatient (REF) | payer OTHER ==
[2021-01-31 14:10] LABS: HEMATOCRIT 34.6 % (36.0-47.0); HEMOGLOBIN 11.9 g/dl (12.0-15.5); MEAN CORPUSCULAR HEMOGLOBIN 32.6 pg (27.0-33.0); MEAN CORPUSCULAR HGB CONC 34.4 g/dl (32.0-36.5); MEAN CORPUSCULAR VOLUME 94.8 fl (80.0-96.0); PLATELET COUNT, AUTOMATED 134 10^3/uL (150-450); RED BLOOD COUNT 3.65 10^6/uL (4.00-5.40); WHITE BLOOD COUNT 10.5 10^3/uL (4.0-10.0)
[2021-01-31 20:09] LABS: ALBUMIN 3.1 GM/DL (3.2-5.2); ALT/SGPT 19 U/L (12-78); BILIRUBIN,TOTAL 0.4 MG/DL (0.2-1.0); BLOOD UREA NITROGEN 10 MG/DL (7-18); CARBON DIOXIDE LEVEL 24 MEQ/L (21-32); CHLORIDE LEVEL 105 MEQ/L (98-107); CREATININE FOR GFR 0.45 MG/DL (0.55-1.30); GLOMERULAR FILTRATION RATE > 60.0 (>60); GLUCOSE, FASTING 56 MG/DL (70-100); POTASSIUM SERUM 3.8 MEQ/L (3.5-5.1); SODIUM LEVEL 137 MEQ/L (136-145); TOTAL PROTEIN 6.4 GM/DL (6.4-8.2)
== END ==
LOC: M PLALAB 12:20
PROVIDERS: ATTEND Obstetrics & Gynecology
DX: L29.9 Pruritus, unspecified (principal)

== ENCOUNTER → 2021-02-20 | Outpatient (REF) | payer OTHER | LOC: M PLALAB 10:43 | PROVIDERS: ATTEND Specialist | DX: P95 Stillbirth (principal) | CPT/HCPCS: 36415; 59025; 82239; G0463 ==

== ENCOUNTER → 2021-02-28 | Outpatient (REF) | payer OTHER ==
[~2021-02-28] MED LIST changes: +PERCOCET PO
== END ==
LOC: M SFHCWAGY 16:57
PROVIDERS: ATTEND Obstetrics & Gynecology
DX: O34.211 Maternal care for low transverse scar from previous cesarean delivery (principal); Z3A.00 Weeks of gestation of pregnancy not specified
CPT/HCPCS: 59025; 87081; G0463

== ENCOUNTER → 2021-03-08 | Outpatient (CLI) | payer OTHER ==
[~2021-03-08] MED LIST changes: -PERCOCET PO
== END ==
LOC: M LABSMTC 11:04
PROVIDERS: ATTEND Anesthesiology
DX: Z01.812 Encounter for preprocedural laboratory examination (principal)

== ENCOUNTER → 2021-03-10 | Outpatient (CLI) | payer OTHER ==
[~2021-03-10] MED LIST changes: +PERCOCET PO
[2021-03-10 11:10] LABS: HEMATOCRIT 35.9 % (36.0-47.0); HEMOGLOBIN 12.3 g/dl (12.0-15.5); MEAN CORPUSCULAR HEMOGLOBIN 32.4 pg (27.0-33.0); MEAN CORPUSCULAR HGB CONC 34.3 g/dl (32.0-36.5); MEAN CORPUSCULAR VOLUME 94.5 fl (80.0-96.0); PLATELET COUNT, AUTOMATED 134 10^3/uL (150-450); WHITE BLOOD COUNT 10.2 10^3/uL (4.0-10.0)
== END ==
LOC: M LAB 10:45
PROVIDERS: ATTEND Anesthesiology
DX: D64.9 Anemia, unspecified (principal)

== ENCOUNTER 2021-03-13 05:18 | Inpatient (IN) | payer OTHER ==
[~2021-03-13] VITALS: Ht 165.1 cm; Wt 86.8 kg
[2021-03-13] VITALS (7 sets, daily range): BP systolic 109–128; BP diastolic 57–72
[~2021-03-13 05:18] MED LIST changes: -PERCOCET PO
[2021-03-13] MEDS ORDERED: ceFAZolin SOD 2 GM in IV 1 EA IV ONE (06:00)
[2021-03-13] MEDS ORDERED: BICITRA 30ML SOLN UDC PO ONE (06:00)
[2021-03-13] MEDS ORDERED: LR 1,000 ML IV ONE (06:00)
[2021-03-13 06:18] LABS: HEMATOCRIT 34.8 % (36.0-47.0); HEMOGLOBIN 12.5 g/dl (12.0-15.5); MEAN CORPUSCULAR HEMOGLOBIN 33.2 pg (27.0-33.0); MEAN CORPUSCULAR HGB CONC 35.9 g/dl (32.0-36.5); MEAN CORPUSCULAR VOLUME 92.3 fl (80.0-96.0); PLATELET COUNT, AUTOMATED 144 10^3/uL (150-450); RED BLOOD COUNT 3.77 10^6/uL (4.00-5.40)
[2021-03-13] MEDS ORDERED: LR 1,000 ML IV SCH ×2 (07:00→09:35)
[2021-03-13] MEDS ORDERED: OXYTOCIN 30 UNITS IN 0.9% NaCl 500ML IV BAG (J2590) As Ordered ONE ×2 (07:34→09:00)
[2021-03-13] MEDS ORDERED: MORPHINE PRES-FREE INJ 10 MG/10 ML VIAL (J2274) As Ordered ONE (07:34)
[2021-03-13] MEDS ORDERED: ONDANSETRON 4MG/2ML VIAL As Ordered ONE (07:34)
[2021-03-13] MEDS ORDERED: NALOXONE INJ 0.4MG/1ML VIAL (J2310 PER 1MG) IV PRN ×2 (07:43)
[2021-03-13] MEDS ORDERED: diphenhydrAMINE 50MG/ML VIAL (J1200) IV PRN (07:43)
[2021-03-13] MEDS ORDERED: METOCLOPRAMIDE INJ 10MG/2ML VIAL (J2765 PER 1) IV PRN ×2 (07:43→09:35)
[2021-03-13] MEDS ORDERED: ONDANSETRON 4MG/2ML VIAL IV PRN ×3 (07:43→09:35)
[2021-03-13] MEDS ORDERED: NALBUPHINE HCL 10 MG/ML AMP (J2300) IV PRN (07:43)
[2021-03-13] MEDS ORDERED: PHENYLephrine 500MCG 5ML (100MCG/ML) SYRINGE As Ordered ONE (07:54)
[2021-03-13] MEDS ORDERED: ePHEDrine SULFATE 25 MG/5 ML(5MG/ML) SYRINGE As Ordered ONE (07:54)
[2021-03-13] MEDS ORDERED: ATROPINE SULF 0.4 MG/ML 1ML VIAL (J0461) As Ordered ONE (07:57)
[2021-03-13] MEDS ORDERED: propofoL 200 MG/20 ML VIAL As Ordered ONE (08:25)
[2021-03-13] MEDS ORDERED: fentaNYL 100 MCG/2 ML INJECTION (J3010) As Ordered ONE ×2 (08:31→09:45)
[2021-03-13] MEDS ORDERED: ACETAMINOPHEN 1000MG 100ML IV BTL (OFIRMEV) (J0131 PER 10MG) As Ordered ONE (08:46)
[2021-03-13] MEDS ORDERED: OXYTOCIN DRIP 30 UNITS in IV 1 EA IV SCH (09:15)
[2021-03-13] MEDS ORDERED: ALBUTEROL 90 MCG/ACT 8GM HFA INHALER INH PRN (09:15)
[2021-03-13] MEDS ORDERED: RHOGAM 300 MCG (1500 IU) INJ (J2790) IM SCH ×2 (09:15→09:30)
[2021-03-13] MEDS ORDERED: ACETAMINOPHEN 500 MG TAB PO PRN (09:15)
[2021-03-13] MEDS ORDERED: MEASLES,MUMPS,RUBELLA VACCINE INJ (MMR-II) (90707) SC SCH ×2 (09:15→09:30)
--- NOTE | 2021-03-13 09:26 | ROOPDOC ---
[facility] Report Of Operation Report of Operation DATE OF PROCEDURE: 03/13/2021 PREPROCEDURE DIAGNOSES:. 37+6 weeks gestation, history of stillborn, history of prior section, thrombocytopenia, polyhydramnios POSTPROCEDURE DIAGNOSES: Same PROCEDURE: Repeat low transverse section SURGEON: Jadiel Latif DO FACOG AUTOMOBILE DAMAGE APPRAISER: Kirk Burgess MD FACOG (Essential role in retraction, extraction, and closure of all tissue layers) ANESTHESIA: Spinal ESTIMATED BLOOD LOSS: 500 mL. IV FLUIDS: 1300 mL LR URINE OUTPUT: 100 mL COMPLICATIONS: None. PREOPERATIVE ANTIBIOTICS: Ancef 2g IV x 1 COMPLICATIONS: none DATA: Apgars 5,6,7. Birthweight 3548 g, 7 lbs 13 oz. SPECIMENS: none PRIMARY INDICATION FOR : history of prior , declining TOLAC. DESCRIPTION OF PROCEDURE: The patient was counseled on the risks, benefits, indications and alternatives of the procedure. Informed consent was obtained. She was taken to the operating room with IV running and placed on the operating table in the dorsal supine position with a leftward tilt. Regional anesthesia was found to be adequate. Sequential compression devices were placed on the lower extremities. A Mayers catheter was placed under sterile conditions. She was prepared and draped in normal sterile fashion. A time out was performed per protocol. Regional anesthesia was again found to be adequate. A Pfannenstiel skin incision was made with the 10 blade. The 10 blade was used to dissect down to the level of the rectus sheath fascia. The rectus sheath pressure was incised midline and this was extended bilaterally with Henning scissors , and manual stretch. The rectus muscle bellies were dissected off the rectus sheath fascia superiorly and inferiorly using both sharp and blunt dissection. The midline was identified. The peritoneum was identified and entered digitally. The peritoneal opening was extended with manual stretch. The Mobius retractor was placed. The vesicouterine peritoneum was dissected with Metzenbaum scissors to create the bladder flap. A low transverse uterine incision was made with the 10 blade. This was extended with manual stretch. The amniotic sac was punctured, and clear fluid was noted. The baby delivered through the hysterotomy without difficulty. The cord was doubly clamped and cut, and the baby was handed off to awaiting care. data shown above. [Cord blood obtained]. [Cord gases were obtained]. The placenta was removed manually. The intrauterine cavity was cleared of all clot and debris. The hysterotomy was closed with 0 Vicryl in running locked fashion. This was reinforced with a second imbricating layer using 0 Monocryl in running fashion. Excellent hemostasis of the hysterotomy was noted. The pelvis was irrigated and the fluid suctioned. The Mobius retractor was removed. The peritoneum was closed with 3-0 Vicryl running fashion. The rectus muscle bellies were reapproximated with interrupted stitches using 3-0 Vicryl. The rectus muscles bellies were hemostatic. The rectus sheath fascia was closed with 0 Vicryl running fashion. The subcutaneous layer was irrigated and the f luid suctioned. Small bleeding vessels were cauterized with Bovie. Excellent hemostasis was noted. The subcutaneous layer was reapproximated with 3-0 Vicryl running fashion. Skin was closed with 3-0 Monocryl in subcuticular fashion. An Optifoam bandage was placed over the closed incision. Sponge, needle and instrument counts were correct per protocol throughout the procedure. The patient tolerated the entire procedure very well. She was transferred to the PACU in stable condition. DO CHRISSY Caspre JONATHAN R. DO March 13, 2021 09:26
[2021-03-13] MEDS ORDERED: PERCOCET PO (09:28)
[2021-03-13] MEDS ORDERED: ANUSOL HC CREAM 30GM TOP PRN (09:30)
[2021-03-13] MEDS ORDERED: oxyCODONE 5MG TAB PO PRN (09:35)
[2021-03-13] MEDS: fentaNYL 100 MCG/2 ML INJECTION (J3010) IV PRN ×4 (09:46→10:09)
[2021-03-13] MEDS ORDERED: oxyCODONE 5MG TAB As Ordered ONE (10:17)
[2021-03-13] MEDS ORDERED: KETOROLAC 30 MG/ML 1ML VIAL As Ordered ONE (10:53)
[2021-03-13] MEDS: KETOROLAC 30 MG/ML 1ML VIAL IV SCH ×3 (10:55→23:14)
[2021-03-13] MEDS: LR 1,000 ML IV SCH ×2 (13:29→17:09)
[2021-03-13] MEDS ORDERED: LACTATED RINGER'S 1000 ML IV STA (17:33)
[2021-03-13] MEDS: DOCUSATE SODIUM 100MG CAPSULE PO SCH (20:12)
[2021-03-13] MEDS: PERCOCET 5MG/325MG TAB PO PRN (21:44)
[2021-03-14 02:00] VITALS: BP 118/62
[2021-03-14] MEDS: KETOROLAC 30 MG/ML 1ML VIAL IV SCH (05:25)
[2021-03-14] MEDS: PERCOCET 5MG/325MG TAB PO PRN ×3 (05:31→19:00)
[2021-03-14 05:58] VITALS: BP 111/59
[2021-03-14 07:24] LABS: HEMATOCRIT 27.1 % (36.0-47.0); MEAN CORPUSCULAR HEMOGLOBIN 32.7 pg (27.0-33.0); MEAN CORPUSCULAR HGB CONC 34.3 g/dl (32.0-36.5); MEAN CORPUSCULAR VOLUME 95.4 fl (80.0-96.0); PLATELET COUNT, AUTOMATED 116 10^3/uL (150-450); RED BLOOD COUNT 2.84 10^6/uL (4.00-5.40); WHITE BLOOD COUNT 10.9 10^3/uL (4.0-10.0)
[2021-03-14 07:27] LABS: HEMOGLOBIN 9.3 g/dl (12.0-15.5)
[2021-03-14] MEDS: metFORMIN (GLUCOPHAGE) 500MG TAB PO SCH ×2 (08:00→17:44)
[2021-03-14] MEDS: SIMETHICONE 80MG CHEW TAB PO PRN ×2 (08:32→13:07)
[2021-03-14] MEDS: DOCUSATE SODIUM 100MG CAPSULE PO SCH ×2 (08:32→21:24)
[2021-03-14] MEDS: FERROUS SULFATE 325MG TAB PO SCH (08:32)
[2021-03-14] MEDS: PRENATAL VITAMINS CHEWABLE TABLET PO SCH (08:32)
--- NOTE | 2021-03-14 08:45 | IPNPDOC ---
Progress Note Date of Service: March 14, 2021 Day#: 1 Progress Note PPD 1 SUBJECT: Sandy is a 30yo [id number] s/p uncomplicated RLTCS at 37w6d for history of prior full-term stillbirth and prior section in the setting of polyhydramnios and thrombocytopenia, doing well post-op/ day # 1. She has been ambulating, voiding spontaneously without issue since lutz removed las t night and tolerating regular diet. Breast pumping for baby in NICU. Reports lochia is like a normal period. No f/c/n/v/CP/SOB. OBJECTIVE: VITAL SIGNS: Within normal limits, afebrile. Alert and oriented times three. Abdomen: Fundus firm at U-2. Soft, appropriately tender to palpation without rebound/guarding. Pfannenstiel incision covered by clean/dry optifoam dressing. Extremities: no pain with palpation of calves Labs: pre-op H/H: 12.5/34.8 post-op H/H: 9.3/27.1 ASSESSMENT: Sandy is a 30yo [id number] s/p uncomplicated RLTCS at 37w6d for history of prior full-term stillbirth and prior section in the setting of polyhydramnios and thrombocytopenia, doing well post-op/ day # 1. Vitals within normal limits, afebrile, hemodynamically stable with no evidence of infection. PLAN: 1. Routine /post-op care 2. Motrin and percocet for pain. Colace for bowel regimen. 3. Encourage breast feeding and ambulation to see baby in NICU. 4. Regular diet 5. Encourage use of IS 6. Possible discharge tomorrow vs boarding while baby is in NICU Mery Burgess MD VS, I&O, 24H, Fishbone Vital Signs/I&O Vital Signs Date Time Temp Pulse Resp B/P (MAP) Pulse Ox O2 Delivery O2 Flow Rate FiO2 03/14/21 05:58 98.0 85 17 111/59 (76) 98 Room Air I&O- Last 24 Hours up to 6 AM 03/14/21 05:59 Intake Total 5115 ml Output Total 2675 ml Balance 2440 ml Laboratory Data 24H LABS Laboratory Tests 2 03/14/21 06:36: Nucleated Red Blood Cells % (auto) 0.0 CBC/BMP Laboratory Tests 5/26/21 06:36 Mery Burgess MD March 14, 2021 08:45
[2021-03-14] MEDS ORDERED: PRENATAL VITAMINS CHEWABLE TABLET PO SCH (09:00)
[2021-03-14 10:00] VITALS: BP 114/63
[2021-03-14] MEDS: IBUPROFEN 800 MG TAB PO SCH ×2 (13:01→21:24)
[2021-03-14 14:11] VITALS: BP 123/81
[2021-03-14 17:28] VITALS: BP 107/62
[2021-03-14 22:00] VITALS: BP 121/73
[2021-03-15 02:00] VITALS: BP 118/70
[2021-03-15] MEDS: PERCOCET 5MG/325MG TAB PO PRN ×2 (02:58→10:32)
[2021-03-15] MEDS: IBUPROFEN 800 MG TAB PO SCH ×3 (05:10→21:39)
[2021-03-15 06:10] VITALS: BP 116/68
[2021-03-15] MEDS: metFORMIN (GLUCOPHAGE) 500MG TAB PO SCH ×2 (08:00→17:11)
[2021-03-15] MEDS: PRENATAL VITAMINS CHEWABLE TABLET PO SCH (09:38)
[2021-03-15] MEDS: DOCUSATE SODIUM 100MG CAPSULE PO SCH ×2 (09:38→21:39)
[2021-03-15] MEDS: FERROUS SULFATE 325MG TAB PO SCH (09:38)
[2021-03-15 18:00] VITALS: BP 110/71
[2021-03-16] MEDS: IBUPROFEN 800 MG TAB PO SCH (05:00)
[2021-03-16 05:49] VITALS: BP 120/77
--- NOTE | 2021-03-16 06:05 | DS.PDOC ---
Discharge Summary General Date of Admission March 13, 2021 at 05:18 Date of Discharge March 16, 2021 Discharge Summary PROCEDURES PERFORMED DURING STAY: [None]. ADMITTING DIAGNOSES: 1.37 6/7 weeks' gestation, history of prior stillborn, prior section, polyhydramnios. DISCHARGE DIAGNOSES: 1. Delivered. COMPLICATIONS/CHIEF COMPLAINT: Previous , Pseudotumor Cererbri. HISTORY OF PRESENT ILLNESS: 30 -year-old female, 37-6/7 weeks gestation presents for repeat section. The indication for early deliveries, history of prior stillborn infant, polyhydramnios. 03/13/2021 the patient underwent repeat section. There were no complications. Her postoperative course was unremarkable. She had adequate return of bladder and bowel function. She was deemed stable for discharge on postoperative day #3. DISCHARGE MEDICATIONS: Please see below. ALLERGIES: Please see below. PHYSICAL EXAMINATION ON DISCHARGE: VITAL SIGNS: Please see below. GENERAL: Within normal limits HEENT: NCAT NECK: Within normal limits CARDIOVASCULAR EXAMINATION: RRR RESPIRATORY EXAMINATION: Clear to auscultation ABDOMINAL EXAMINATION: Nontender, dressing clean, dry and intact EXTREMITIES: Nontender, trace edema LABORATORY DATA: Please see below. PROGNOSIS: Good ACTIVITY: [As tolerated]. DIET: Regular DISCHARGE PLAN: Discharge today DISCHARGE INSTRUCTIONS: 1. Instructions reviewed. 2. Pain medication ordered DISCHARGE CONDITION: Stable. TIME SPENT ON DISCHARGE: Greater than 10 minutes. Vital Signs/I&Os Vital Signs Date Time Temp Pulse Resp B/P (MAP) Pulse Ox O2 Delivery O2 Flow Rate FiO2 03/16/21 05:49 98.7 85 16 120/77 (91) 97 Room Air Discharge Medications Scheduled Ferrous Sulfate (Iron) 325 Mg Tablet, 1 TAB PO DAILY, (Reported) Metformin HCl (Metformin HCl) 500 Mg Tablet, 500 MG PO BID, (Reported) No.137/Iron/Folic Acd ( Vitamin Tablet) 1 Each Tablet, 1 TAB PO DAILY, (Reported) Scheduled PRN Albuterol Sulfate (Proair Hfa) 8.5 Gm Hfa.aer.ad, 2 PUFF INH for SHORTNESS OF BREATH, (Reported) Oxycodone/Acetaminophen (Oxycodone-Acetaminophen 5-325) 1 Each Tablet, 1 TAB PO Q4H PRN for MILD/MODERATE PAIN (PS 1-7) Allergies Coded Allergies: ciprofloxacin (Verified Allergy, Intermediate, hives, 01/14/20) doxycycline (Verified Allergy, Intermediate, hives, 01/14/20) Quinolones (Verified Allergy, Unknown, 01/14/20) Sulfa (Sulfonamide Antibiotics) (Verified Allergy, Unknown, 01/14/20) TAPE (Unverified Allergy, Unknown, 01/14/20) Tetracyclines (Verified Allergy, Unknown, 01/14/20) nitrofurantoin (Verified Allergy, Unknown, 01/14/20) NSAIDS (Non-Steroidal Anti-Inflamma (Verified Adverse Reaction, Mild, REBOUND HEADACHE, 03/13/21) KUMAR HERNANDEZ MD March 16, 2021 06:05
[2021-03-16] MEDS: metFORMIN (GLUCOPHAGE) 500MG TAB PO SCH (08:04)
[2021-03-16] MEDS: DOCUSATE SODIUM 100MG CAPSULE PO SCH (09:00)
[2021-03-16] MEDS: PRENATAL VITAMINS CHEWABLE TABLET PO SCH (09:00)
[2021-03-16] MEDS: FERROUS SULFATE 325MG TAB PO SCH (09:00)
== END 2021-03-16 11:35 | disposition home or self-care (01) | DRG 772 ==
LOC: M LDI 05:18 → M OBS 11:45
PROVIDERS: ADMIT Obstetrics & Gynecology; ATTEND Obstetrics & Gynecology
PROC: 10D00Z1 Extraction of Products of Conception, Low, Open Approach (ICD-10-PCS; principal; 2021-03-13 07:30)
DX: O34.211 Maternal care for low transverse scar from previous cesarean delivery (principal); O99.12 Other diseases of the blood and blood-forming organs and certain disorders involving the immune mechanism complicating childbirth; Z3A.37 37 weeks gestation of pregnancy; O40.3XX0 Polyhydramnios, third trimester, not applicable or unspecified; D69.6 Thrombocytopenia, unspecified; Z37.0 Single live birth

== ENCOUNTER → 2021-07-03 | Outpatient (CLI) | payer OTHER ==
[~2021-07-03] MED LIST changes: +PERCOCET PO
[2021-07-03 13:36] LABS: HEMATOCRIT 43.3 % (36.0-47.0); HEMOGLOBIN 14.6 g/dl (12.0-15.5); MEAN CORPUSCULAR HEMOGLOBIN 30.4 pg (27.0-33.0); MEAN CORPUSCULAR HGB CONC 33.7 g/dl (32.0-36.5); PLATELET COUNT, AUTOMATED 218 10^3/uL (150-450); RED BLOOD COUNT 4.81 10^6/uL (4.00-5.40); WHITE BLOOD COUNT 6.5 10^3/uL (4.0-10.0)
[2021-07-03 15:40] LABS: ALBUMIN 3.9 GM/DL (3.2-5.2); ALT/SGPT 26 U/L (12-78); BILIRUBIN,TOTAL 0.6 MG/DL (0.2-1.0); BLOOD UREA NITROGEN 12 MG/DL (7-18); CALCIUM LEVEL 9.3 MG/DL (8.5-10.1); CARBON DIOXIDE LEVEL 28 MEQ/L (21-32); CHLORIDE LEVEL 108 MEQ/L (98-107); GLOMERULAR FILTRATION RATE > 60.0 (>60); GLUCOSE, FASTING 89 MG/DL (70-100); POTASSIUM SERUM 4.3 MEQ/L (3.5-5.1); SODIUM LEVEL 139 MEQ/L (136-145); THYROID STIMULATING HORMONE 0.996 uIU/ML (0.358-3.740); TOTAL PROTEIN 7.3 GM/DL (6.4-8.2)
--- NOTE | 2021-07-06 19:07 | HOLTMON ---
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 47 hours and 3 minutes were usable for analysis. Baseline sinus rhythm with normal AV conduction and narrow QRS complex. Average HR 71 bpm. No pauses, no PVC's, no atrial fibrillation. Very rare PAC's. Patient reported 3 episodes of dizziness and 1 episode of palpitations. All episodes corresponded to sinus rhythm or mild sinus bradycardia (HR in 50's). Electronically Signed on 07-06-2021 19:07:20 EDT by Kirby Seymour
== END ==
LOC: M LAB 12:46
PROVIDERS: ATTEND Physician Assistant Medical
DX: R00.0 Tachycardia, unspecified (principal); R00.1 Bradycardia, unspecified; R53.83 Other fatigue
CPT/HCPCS: 36415; 80053; 84443; 85027; 93005; 93225; 93226; G0463